=== PATIENT | female | born 1935 | race Caucasian/White ===

== ENCOUNTER → 2022-10-12 13:19 | Outpatient (BNVA) | payer MEDICARE, SELFPAY | PROVIDERS: Visit Provider Podiatrist Foot & Ankle Surgery | DX: I73.9 Peripheral vascular disease, unspecified (principal); M20.41 Other hammer toe(s) (acquired), right foot; M20.42 Other hammer toe(s) (acquired), left foot; L60.3 Nail dystrophy; L84 Corns and callosities | CPT/HCPCS: 11057; 11721; 99204 ==

== ENCOUNTER 2022-11-20 14:45 | Inpatient (IN) | payer MEDICARE, SELFPAY ==
[2022-11-20] VITALS (22 sets, daily range): BP systolic 104–227; BP diastolic 54–121; PULSE 61–86; RESP 6–26; TEMP 36.5–37.7; O2SAT 89–96
--- NOTE | 2022-11-20 15:00 | XR_ITS ---
WS: [id number] Portable AP upright chest, 11/20/2022 Clinical Data: dyspnea/cough Comparison: None. Findings: No nodules, masses or effusions are seen. There is a patchy opacity overlying the lateral a spect of the right diaphragm which could represent atelectasis, pneumonia and/or effusion. The heart is enlarged. The pulmonary vascularity is not increased. No pneumonia or pneumothorax is seen. The ao rtic arch and descending thoracic aorta show mild tortuosity. XR/XR chest 1V portable [id number] Impression: 1. Patchy opacity in the right lower lobe which could represent atelectasis, pn eumonia and/or effusion. 2. Cardiomegaly and atherosclerosis.
--- NOTE | 2022-11-20 15:05 | ECG_ITS ---
[facility] Test Date: 2022-11-20 Pat Name: Nguyen Valencia Department: Room: Gender: Female Basket Filler: : 1935 Requested By: Lamonte Bro Order Number: [id number] Elza MD: Shari Benson M.D. Measurements Intervals [place] Rate: 70 P: -2 MS: 184 QRS: -14 QRSD: 89 T: 62 QT: 420 QTc: 455 Interpretive Statements SINUS RHYTHM WITH SINUS ARRHYTHMIA No previous ECG available for comparison Electronically Signed On 11-20-2022 16:43:15 DUPLICATOR PUNCH OPERATOR by Shari Benson M.D. [id number]
--- NOTE | 2022-11-20 15:14 | W.ED.GENADLT ---
HPI - General Adult General: Chief complaint: General Medical Stated complaint: HYPERTENSION/ DEMENTIA Time Seen by Provider: 11/20/22 14:47 Source: patient Mode of arrival: EMS History of Present Illness: 87-year-old female presents emergency room has a moderate dementia severely hard of hearing blood pressure is markedly elevated presents from a local assisted living. No focal neurologic deficits denies any specific areas of pain or discomfort. She is most part she is unsure why she is here. Relieving factors: none Exacerbating factors: none Associated symptoms: Reports confusion; Deny chest pain, dyspnea, malaise, nausea, rash or vomiting Treatments prior to arrival: none Review of Systems Const: Denies: fever(s), chills, body aches, change in appetite, fatigue or malaise ENMT: Denies: throat pain, ear or mastoid pain, nasal discharge or nasal congestion Card: Denies: chest pain, edema, dyspnea on exertion or orthopnea Resp: Denies: dyspnea, productive cough or non-productive cough GI: Denies: abdominal pain, nausea, vomiting, hematemesis, coffee ground emesis, diarrhea, constipation, bloating, hematochezia or melena : Denies: flank pain, difficulty voiding, dysuria, urinary frequency or urinary urgency Skin/Breast: Denies: rash or pruritus Neuro: Reports: confusion PFSH ED PFSH: Medical History CAD (coronary artery disease) stents x2 Dementia Hypertension Social History (Updated 11/20/22 @ 19:05 by Tim Nash MD) Smoking and tobacco status: never smoked Alcohol intake: never Lives independently: No Housing: Assisted Living Facility Physical Exam Const: COMMON NORMALS: no acute distress GENERAL APPEARANCE: cooperative and comfortable ORIENTATION/CONSCIOUSNESS: Yes awake, Yes oriented to person, Yes oriented to place and Yes oriented to time HENMT: COMMON NORMALS: normocephalic, atraumatic and hearing grossly normal bilaterally HEAD & SCALP: normocephalic and atraumatic Resp: COMMON NORMALS: normal respiratory effort, No retractions, No use of accessory muscles and clear to auscultation bilaterally AUSCULTATION: clear to auscultation bilaterally Cardio: COMMON NORMALS: regular rate, regular rhythm and No murmurs present (Cardio) RATE: regular rate RHYTHM: regular rhythm GI: COMMON NORMALS: Soft to palpation and No hepatosplenomegaly present AUSCULTATION: Yes normoactive bowel sounds PALPATION: Yes Soft to palpation, No Tenderness to palpation present (GI), No Guarding due to palpation present (GI) and Yes No hepatosplenomegaly present Extremity: COMMON NORMALS: normal to inspection, capillary refill normal, no clubbing, cyanosis or edema, no calf tenderness and no pedal edema Neuro: SENSORIUM/ORIENTATION: Yes oriented to person, Yes oriented to place and Yes oriented to time Skin: COMMON NORMALS: no rashes or lesions noted GENERAL SKIN EXAM: no rashes or lesions noted Course Vital Signs: Vital signs: Vital Signs Temperature 97.6 F 11/25/22 12:00 Pulse Rate 77 11/25/22 12:00 Respiratory Rate 17 11/25/22 12:00 Blood Pressure 149/75 11/25/22 12:00 Pulse Oximetry 94 11/25/22 12:00 Oxygen Delivery Me thod 11/25/22 12:00 Oxygen Flow Rate 2 11/24/22 20:00 MDM - General Adult Medical Decision Making Labs imaging and EKG reviewed. Chest x-ray shows pneumonia. Will admit started on IV antibiotics. Control blood pressure discussed with hospitalist orders written Medical Records I reviewed the patient's medical records. Lab Data I reviewed the patient's lab results. 11/20/22 15:39 11/20/22 15:39 Radiology Impressions Chest X-Ray 11/20/22 15:00 Impression: 1. Patchy opacity in the right lower lobe which could represent atelectasis, pneumonia and/or effusion. 2. Cardiomegaly and atherosclerosis. Chest/Abdomen/Pelvis CT 11/20/22 18:43 IMPRESSION: Findings suspicious for inflammatory change at distal esophagus. Otherwise, no acute findings. IMPRESSION: No acute findings. Head CT 11/20/22 19:15 IMPRESSION: No acute intracranial abnormality. Renal Ultrasound 11/21/22 08:43 IMPRESSION: Normal kidneys. No hemodynamically significant stenosis. Venous Duplex 11/23/22 18:47 IMPRESSION: 1. No right upper extremity deep venous thrombus. 2. Right upper arm cephalic vein superficial thrombosis. Laboratory Results WBC 8.9 10^3/uL (4.0-10.0) 11/20/22 15:39 RBC 4.70 10^6/uL (4.1-5.3) 11/20/22 15:39 Hgb 13.9 g/dL (11.5-15.3) 11/20/22 15:39 Hct 42.8 % (37.0-47.0) 11/20/22 15:39 MCV 91.1 fl (81-99) 11/20/22 15:39 MCH 29.6 pg (28.0-34.0) 11/20/22 15:39 MCHC 32.5 g/dL (30.0-36.0) 11/20/22 15:39 RDW 13.4 % (12.1-15.1) 11/20/22 15:39 Plt Count 187 10^3/cmm (130-400) 11/20/22 15:39 MPV 9.2 fL (7.4-10.4) 11/20/22 15:39 Neut % (Auto) 61.4 % 11/20/22 15:39 Lymph % (Auto) 22.9 % 11/20/22 15:39 [place] % (Auto) 11.9 % 11/20/22 15:39 Eos % (Auto) 2.9 % 11/20/22 15:39 Baso % (Auto) 0.6 % 11/20/22 15:39 Neut # (Auto) 5.47 10^3/uL (1.8-7.7) 11/20/22 15:39 Lymph # (Auto) 2.0 10^3/uL (0.8-4.8) 11/20/22 15:39 [place] # (Auto) 1.1 10^3/uL (0.2-0.9) H 11/20/22 15:39 Eos # (Auto) 0.3 10^3/uL (0.0-0.8) 11/20/22 15:39 Baso # (Auto) 0.1 10^3/uL (0.0-0.1) 11/20/22 15:39 Nucleated RBC % (auto) 0 % 11/20/22 15:39 Nucleated RBCs # 0.0 /100WBC 11/20/22 15:39 Sodium 142 mmol/L (136-145) 11/20/22 15:39 Potassium 4.0 mmol/L (3.5-5.1) 11/20/22 15:39 Chloride 102 mmol/L (98-107) 11/20/22 15:39 Carbon Dioxide 27 mmol/L (22-29) 11/20/22 15:39 Anion Gap 17.0 (5-19) 11/20/22 15:39 BUN 19 mg/dL (8-23) 11/20/22 15:39 Creatinine 1.1 mg/dL (0.5-0.9) H 11/20/22 15:39 GFR Calculation Not Reportable 11/20/22 15:39 Glucose 134 mg/dL (65-115) H 11/20/22 15:39 Calculated Osmolality 298 mOsm/kg (285-295) H 11/20/22 15:39 Calcium 9.6 mg/dL (8.5-10.5) 11/20/22 15:39 Troponin T Baseline 16 ng/L (0-10) H 11/20/22 15:39 Urine Color Yellow (Yellow) 11/20/22 16:37 Urine Appearance Clear (CLEAR) 11/20/22 16:37 Urine pH 6 (5-7) 11/20/22 16:37 Ur Specific [place] 1.015 (1.005-1.030) 11/20/22 16:37 Urine Protein Neg (Negative) 11/20/22 16:37 Urine Glucose (UA) Norm (Normal) 11/20/22 16:37 Urine Ketones Negative (Negative) 11/20/22 16:37 Urine Blood Neg (Negative) 11/20/22 16:37 Urine Nitrate Negative (Negative) 11/20/22 16:37 Urine Bilirubin Neg (Negative) 11/20/22 16:37 Urine Urobilinogen Norm mg/dL (Negative) 11/20/22 16:37 Ur Leukocyte Esterase Negative (Negative) 11/20/22 16:37 Coronavirus 229E (PCR) Not detected (NOT DETECT) 11/20/22 07:18 SARS-CoV-2 (PCR) Not detected (NOT DETECT) 11/20/22 07:18 Discharge Plan Discharge Patient Disposition: Admitted As Inpatient Admit Provider: Halytskyy,Tim Clinical Impression: Pneumonia, Acute encephalopathy, Hypertensive crisis Condition: Stable Coding Level of Care Code ED Sub Arc Operator for Francisco Arguello
[2022-11-20] MEDS: metoprolol tartrate 25 mg Tablet PO (15:45)
[2022-11-20] MEDS: amlodipine 10 mg Tablet PO (15:45)
[2022-11-20 15:47] LABS: Basophils # 0.1 10^3/uL (0.0-0.1); Basophils % 0.6 %; Eosinophils # 0.3 10^3/uL (0.0-0.8); Eosinophils % 2.9 %; Hematocrit 42.8 % (37.0-47.0); Hemoglobin 13.9 g/dL (11.5-15.3); Lymphocytes % 22.9 %; Mean Corpuscular HGB Conc 32.5 g/dL (30.0-36.0); Mean Corpuscular Hemoglobin 29.6 pg (28.0-34.0); Mean Corpuscular Volume 91.1 fl (81-99); Mean Platelet Volume 9.2 fL (7.4-10.4); Monocytes # 1.1 10^3/uL (0.2-0.9); Monocytes % 11.9 %; Neutrophils # 5.47 10^3/uL (1.8-7.7); Neutrophils % 61.4 %; Nucleated Red Blood Cells % 0 %; Platelet Count 187 10^3/cmm (130-400); Red Cell Distribution Width 13.4 % (12.1-15.1); White Blood Count 8.9 10^3/uL (4.0-10.0)
[2022-11-20] MEDS: hyDRALAzine 20 mg/mL INJ 1 mL IVP (15:47)
[2022-11-20] MEDS: labetalol 5 mg/mL SDV 20mL 10 MG IVP (15:47)
--- NOTE | 2022-11-20 15:57 | PC.NURSE ---
nurse from [facility] called to check on pt. spoke with nurse and let her know still awaiting lab results, told to call back in an hour or so
[2022-11-20 16:08] LABS: Blood Urea Nitrogen 19 mg/dL (8-23); Calcium 9.6 mg/dL (8.5-10.5); Carbon Dioxide 27 mmol/L (22-29); Chloride 102 mmol/L (98-107); Glucose 134 mg/dL (65-115); Osmolality Calculated 298 mOsm/kg (285-295); Sodium 142 mmol/L (136-145)
[2022-11-20 16:57] LABS: Add Urine Microscopic? NO; Charge for UA Resulting for Rev
[2022-11-20 17:57] LABS: Bilirubin Urine Neg (Negative); Blood Urine Neg (Negative); Glucose Urine UA Norm (Normal); Ketones Urine Negative (Negative); Leukocyte Esterase Urine Negative (Negative); Nitrate Urine Negative (Negative); Protein Urine Neg (Negative); Specific Gravity, Urine 1.015 (1.005-1.030); Urine Appearance Clear (CLEAR); Urine Color Yellow (Yellow); Urobilinogen Urine Norm (Negative); pH Urine 6 (5-7)
[2022-11-20] MEDS: nicardipine 20 MG/200 ML PREMIX 25 MG IV (18:26)
--- NOTE | 2022-11-20 18:43 | CTR_ITS ---
PROCEDURE INFORMATION: Exam: CTA Chest With Contrast Exam date and time: 11/20/2022 7:42 PM Age: 87 years old Clinical indication: Abdominal pain; Other: Back; Chest pressure; Additional info: HTN crisis, back pain TECHNIQUE: Imaging protocol: Computed tomographic angiography of the chest with contrast. 3D rendering (Not supervised by radiologist): MIP and/or 3D reconstructed images were created by the technologist. Radiation optimization: All CT scans at this facility use at least one of these dose optimization techniques: automated exposure control; mA and/or kV adjustment per patient size (includes targeted exams where dose is matched to clinical indication); or iterative reconstruction. Contrast material: OMNI 350; Contrast volume: 100 ml; Contrast route: INTRAVENOUS (IV); Other protocol: This patient has received [address] and 0 known cardiac nuclear medicine studies in the 12 months prior to the current study. COMPARISON: CR XR chest 1V portable [id number] 11/20/2022 3:04 PM RADIATION DOSE METRICS: Total DLP (mGy-cm): 271.2 FINDINGS: Pulmonary arteries: Normal. No pulmonary emboli. Aorta: No aortic aneurysm. No aortic dissection. Lungs: Mild atelectasis/scarring bilaterally Pleural spaces: No pneumothorax. No pleural effusion. Heart: Mitral annular calcifications. Mild cardiomegaly. Coronary arteries: Coronary calcifications are noted. Mediastinal space: Distal esophageal thickening suspicious for inflammatory change. Lymph nodes: No enlarged lymph nodes. Diaphragm: Small hiatal hernia. Bones/joints: No acute fracture. Soft tissues: Unremarkable. PROCEDURE INFORMATION: Exam: CT Abdomen And Pelvis With Contrast Exam date and time: 11/20/2022 7:42 PM Age: 87 years old Clinical indication: Abdominal pain; Other: Back; Chest pressure; Additional info: HTN crisis, back pain TECHNIQUE: Imaging protocol: Computed tomography of the abdomen and pelvis with contrast. Radiation optimization: All CT scans at this facility use at least one of these dose optimization techniques: automated exposure control; mA and/or kV adjustment per patient size (includes targeted exams where dose is matched to clinical indication); or iterative reconstruction. Contrast material: OMNI 350; Contrast volume: 100 ml; Contrast route: INTRAVENOUS (IV); Other protocol: This patient has received [address] and 0 known cardiac nuclear medicine studies in the 12 months prior to the current study. COMPARISON: CR XR chest 1V portable [id number] 11/20/2022 3:04 PM RADIATION DOSE METRICS: Total DLP (mGy-cm): 542.9 FINDINGS: Liver: Normal. No mass. Gallbladder and bile ducts: Cholecystectomy. Pancreas: Normal. No ductal dilation. Spleen: Normal. No splenomegaly. Adrenal glands: Normal. No mass. Kidneys and ureters: Normal. No hydronephrosis. Stomach and bowel: Small duodenal diverticulum. Colonic diverticula noted. No evident pericolic inflammatory change. No findings of abnormal bowel distention. Appendix: No evidence of appendicitis. Intraperitoneal space: Unremarkable. No free air. No significant fluid collection. Vasculature: Vascular calcifications are noted. No abdominal aortic aneurysm. Lymph nodes: Unremarkable. No enlarged lymph nodes. Urinary bladder: Unremarkable as visualized. Reproductive: Hysterectomy. Bones/joints: No acute fracture. Soft tissues: Unremarkable. CT/CT angio chest w abd pel w con IMPRESSION: Findings suspicious for inflammatory change at distal esophagus. Otherwise, no acute findings. IMPRESSION: No acute findings.
--- NOTE | 2022-11-20 18:51 | PM.HP ---
Providers/Chief Complaint Admitting Physician: Tim Nash Primary Care Provider: Jorden Melgoza DO Chief Complaint: HYPERTENSION/ DEMENTIA History of Present Illness 87-year-old lady assisted living resident with history of dementia, hypertension, CAD stenting x2 several decades ago, constipation, was found to have very elevated blood pressure at assisted living on routine check. She has been having a mild frontal headache/pressure in her sinuses today. Other than that her daughter reports she has been complaining of some constipation, but without other new issues. In ER she is having back pain. She herself is awake, alert, very hard of hearing, forgot her hearing aid. In good spirits. States she is hungry. Unable to provide other history. Does not know where she is, states the is 1999 something. Her daughter states several months ago her quetiapine dose was increased, but other than that there has not been any recent changes medications. She has not been on any antihypertensives as far as her daughter is aware. She states that sometimes blood pressure will be measured with her standing up with her arm up due to blood pressure slightly high. In ER she was given p.o. dose of metoprolol 25 mg, amlodipine 10 mg, as well as IV 10 mg labetalol push, 20 mg hydralazine push, with only transient blood pressure improvement down to 198/85, subsequent blood pressure again up to 220/110. EKG with sinus rhythm. Unremarkable CBC. BUN 19, creatinine 1.1, unknown baseline. UA unremarkable. Chest x-ray with patchy opacity in the right lower lobe which could represent reflux, pneumonia and/or effusion. Cardiomegaly and atherosclerosis. She denies any vision changes, denies chest pain, denies any numbness or weakness anywhere. Her daughter states she has prior stated wishes in case of cardiopulmonary arrest she is DNR. Review of Systems General: Reports: Other (ROS obtained with help of her daughter) Const: Denies: fever(s), chills, body aches or malaise Eyes: Denies: change in vision, eye discomfort or eye redness ENMT: Denies: throat pain, oral sores or ear or mastoid pain Card: Denies: chest pain, edema, pre-syncope or dyspnea on exertion Resp: Denies: dyspnea, productive cough, change in phlegm color or hemoptysis GI: Reports: abdominal pain; Denies: nausea, vomiting, diarrhea, constipation, hematochezia or melena : Denies: flank pain, urinary frequency or hematuria Musc: Reports: back pain; Denies: joint swelling or joint redness Skin/Breast: Denies: rash or new lesions Neuro: Reports: headache(s); Denies: numbness in extremities, weakness in extremities, dizziness, confusion or seizure-like activity Endo: Denies: polyuria or polydipsia Gary/Lymph: Denies: easy bleeding or tender lymph nodes All/Imm: Denies: urticaria or tongue swelling Medications/Allergies Home Medications Medication Instructions Recorded Confirmed Last Taken Type aspirin 81 mg tablet,delayed 81 mg PO QPM 10/12/22 11/20/22 11/19/22 History release (Adult Aspirin Regimen) quetiapine 50 mg tablet (Seroquel) 50 mg PO QPM 10/12/22 11/20/22 11/19/22 History rosuvastatin 10 mg tablet (Crestor) 10 mg PO BEDTIME 10/12/22 11/20/22 11/19/22 History vit C 500 mg-D3 15 mcg-folic 1,000 1 cap PO DAILY 10/12/22 11/20/22 11/20/22 History mcg-zinc 16 ps-pihvlq-itza capsule vitamin B complex 1 cap PO DAILY 10/12/22 11/20/22 11/20/22 History Lactobacillus rhamnosus GG 10 1 cap PO DAILY PRN unknown 11/20/22 11/20/22 Unknown History billion cell capsule (Culturelle) acetaminophen 650 mg 650 mg PO Q8H PRN Pain 11/20/22 11/20/22 Unknown History tablet,extended release (Tylenol 8 Hour) bisacodyl 10 mg rectal suppository 10 mg NM DAILY PRN Constipation 11/20/22 11/20/22 Unknown History cetirizine 10 mg capsule (Zyrtec) 10 mg PO QPM 11/20/22 11/20/22 11/19/22 History cholecalciferol (vitamin D3) 25 25 mcg PO DAILY 11/20/22 11/20/22 11/20/22 History mcg (1,000 unit) capsule (Vitamin D3) fluticasone propionate 50 1 spray intranasal BID 11/20/22 11/20/22 11/20/22 History mcg/actuation nasal spray,suspension guaifenesin 1,200 mg tablet, 1,200 mg PO Q12H PRN Congestion 11/20/22 11/20/22 Unknown History extended release 12 hr (Mucinex) magnesium hydroxide 400 mg/5 mL 400 mg PO DAILY PRN Constipation 11/20/22 11/20/22 Unknown History oral suspension (Milk of Magnesia) melatonin 5 mg tablet 5 mg PO BEDTIME 11/20/22 11/20/22 11/19/22 History medioovu-rxy-vvnkt ac 400 1 tab PO DAILY 11/20/22 11/20/22 11/20/22 History mcg-calcium carb 500 mg-vit K1 20 mcg tablet (Women's 50 Plus Multivitamin) quetiapine 25 mg tablet (Seroquel) 25 mg PO QPM 11/20/22 11/20/22 11/19/22 History sertraline 50 mg tablet (Zoloft) 50 mg PO QPM 11/20/22 11/20/22 11/19/22 History sodium phosphates 19 gram-7 118 ml NM DAILY PRN Constipation 11/20/22 11/20/22 Unknown History gram/118 mL enema (Fleet Enema) Allergies Allergy/AdvReac Type Severity Reaction Status Date / Time Sulfa (Sulfonamide Allergy ADR-Gastrointestinal Verified 11/20/22 15:16 Antibiotics) Upset PFSH Acute PFSH: Medical History CAD (coronary artery disease) stents x2 Dementia Hypertension Social History (Updated 11/20/22 @ 19:05 by Tim Nash MD) Smoking and tobacco status: never smoked Alcohol intake: never Lives independently: No Housing: Assisted Living Facility Vitals/I&O/Wt Last Vital Signs Temp 99.8 F H 11/20/22 14:46 Pulse 81 11/20/22 18:49 Resp 16 11/20/22 17:28 BP 196/95 11/20/22 18:49 Pulse Ox 96 11/20/22 18:49 O2 Del Method 11/20/22 17:28 Weight last 48 hrs Weight 77.111 kg Physical Exam Narrative: Daughter at bedside. She is very hard of hearing, hears better in the left ear when spoken to loudly. Const: COMMON NORMALS: patient oriented x3 and alert GENERAL APPEARANCE: cooperative ORIENTATION/CONSCIOUSNESS: Yes awake HENMT: COMMON NORMALS: oropharynx normal Neck/C-Spine: COMMON NORMALS: no JVD Resp: COMMON NORMALS: normal respiratory effort and clear to auscultation bilaterally AUSCULTATION: clear to auscultation bilaterally Cardio: COMMON NORMALS: no JVD, regular rhythm, S1 normal heart sound present, S2 normal heart sound present and No murmurs present (Cardio) RHYTHM: regular rhythm HEART SOUNDS: S1 normal heart sound present and S2 normal heart sound present GI: COMMON NORMALS: Normal to inspection, nondistended, normoactive bowel sounds present and Soft to palpation PALPATION: Yes Soft to palpation and Yes Tenderness to palpation present (GI) Details: LLQ Extremity: COMMON NORMALS: no joint enlargement and no pedal edema Neuro: COMMON NORMALS: patient oriented x3 and moves all extremities SENSORIUM/ORIENTATION: Yes alert Skin: COMMON NORMALS: no rashes or lesions noted GENERAL SKIN EXAM: no rashes or lesions noted Data 11/20/22 15:39 11/20/22 15:39 A&P Assessment and plan (1) Hypertensive crisis: Blood pressure back up to 220/110 despite treatment. Assessments performed so far reviewed, discussed with ER physician. Starting on nicardipine drip. Requested admit to ICU. With back pain, abdominal pain discussed with her daughter additional assessment with CTA to assess for aortic dissection. Discussed risks. Daughter is agreeable. with KENDRICK will obtain CT head as well. Nicardipine drip, target blood pressure 175/88 tonight however several hours, then gradual decrease from there. Unclear if having endorgan damage. Additional assessment with CTA. Chest x-ray with patchy opacity right lower lobe. Daughter states she has not been having any cough. Has not been complaining of any shortness of breath. She denies chest pain. Possibility of early pulmonary edema. Does have low-grade temp 99.8. Some lower possibility of pneumonia. Will reassess chest x-ray in the morning. Monitor oxygenation. Additionally headache, possibly secondary to persistent blood pressure elevation. Creatinine 1.1, unknown baseline. Possible SUE. On chest x-ray noted cardiomegaly and atherosclerosis. Has history of CAD. Does not endorse symptoms of decompensated CHF. Consider further assessment with TTE. Monitor on telemetry due to high risk of complications including (2) Back pain: Daughter states has no history of complaints of back pain previously. Certainly may be osteoarthritis, however, with hypertensive crisis additionally assessed with CT angiogram as above. (3) Abdominal pain: Daughter reports history of constipation, left lower quadrant pain and tenderness on palpation abdomen is soft. Otherwise no history suggestive of ischemic bowel disease. Additional assessment with CT as above. (4) Headache: CT head requested. May be hypertensive encephalopathy with persistent very high blood pressure even despite treatment. Nicardipine drip as above. Daughter states she has been having some pressure-like sensation over frontal sinuses. Possibly sinusitis. Follow-up CT head. 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 UA unremarkable. Right lower lobe patchy opacity, but otherwise not endorse terms of pneumonia. We will check COVID PCR panel. Additionally left lower quadrant abdominal pain, constipation, follow-up abdominal CT findings. (6) Abnormal renal function: Unknown baseline. Possible SUE, creatinine 1.1, BUN 19. Possibly secondary to hypertensive crisis. I do not see any obvious offending medications at home. Does take rosuvastatin, check CK. (7) Constipation: MiraLAX, continue her usual bowel regimen as well. Plan CAD with stent x2 Dementia Attestations Medical Necessity Statement*: Admission of over 2 midnights anticipated for assessment management of hypertensive crisis with blood pressure not responsive to oral and IV push medications, additional assessment of headache, back pain, abdominal pain, SUE, at risk of serious/life-threatening complication, requiring intensive care level treatment and monitoring. Coding Level of Care Code Critical Care >/= 30 minutes Critical care time (in minutes): 50 The high probability of a clinically significant, sudden or life threatening deterioration, as referenced in this documentation, required my full and direct attention, intervention and personal management. The critical care time shown is in addition to time spent performing any reported separately billable procedures and includes the following: [x] Data and vital sign review and interpretation [x] Patient assessment, examination and intervention [x] Medication orders and management [x] Patient/Family updates as able [x] Care Coordination and Documentation. Diagnoses Hypertensive crisis I16.9 Back pain M54.9 Abdominal pain R10.9 Headache R51.9 Low grade fever R50.9 Abnormal renal function N28.9 Constipation K59.00
[2022-11-20] MEDS: iohexol 350 mg/mL 500 mL Btl (per mL) IV (18:57)
--- NOTE | 2022-11-20 19:15 | CTR_ITS ---
PROCEDURE INFORMATION: Exam: CT Head Without Contrast Exam date and time: 11/20/2022 7:28 PM Age: 87 years old Clinical indication: Pain; Headache not specified; Additional info: Hypertensive crisis, headache TECHNIQUE: Imaging protocol: Computed tomography of the head without contrast. Radiation optimization: All CT scans at this facility use at least one of these dose optimization techniques: automated exposure control; mA and/or kV adjustment per patient size (includes targeted exams where dose is matched to clinical indication); or iterative reconstruction. Other protocol: This patient has received [address] and 0 known cardiac nuclear medicine studies in the 12 months prior to the current study. COMPARISON: No relevant prior studies available. RADIATION DOSE METRICS: Total DLP (mGy-cm): 1178.18 FINDINGS: Brain: No hemorrhage. No edema. Advanced diffuse cerebral atrophy, particularly prominent within the temporal lobes. Moderate sequela of chronic small vessel ischemic disease. Old lacunar infarct noted in the left basal ganglia. No mass effect. Cerebral ventricles: No ventriculomegaly. Paranasal sinuses: Mucosal retention cyst noted in the right maxillary sinus. The rest of the paranasal sinuses are well pneumatized. Mastoid air cells: Bilateral mastoidectomies. Bones/joints: Unremarkable. No acute fracture. Soft tissues: Unremarkable. CT/CT head wo con* [id number] IMPRESSION: No acute intracranial abnormality.
[2022-11-20 19:38] LABS: Troponin(5th) Baseline 16 ng/L (0-10)
[2022-11-20 20:04] LABS: Creatine Phosphokinase 110 U/L (26-192)
--- NOTE | 2022-11-20 20:44 | ECG_ITS ---
[facility] Test Date: 2022-11-20 Pat Name: Nguyen Valencia Department: Room: [facility] Gender: Female Maintenance And Repair Worker: : 1935 Requested By: Lamonte Bro Order Number: [id number] Elza MD: Shari Benson M.D. Measurements Intervals [place] Rate: 67 P: 191 MT: 190 QRS: 224 QRSD: 97 T: 111 QT: 407 QTc: 431 Interpretive Statements SINUS RHYTHM WITH OCCASIONAL SUPRAVENTRICULAR PREMATURE COMPLEXES ARM LEADS REVERSED [INVERTED P AND QRS IN I] Compared to ECG 11/20/2022 15:05:51 Sinus arrhythmia no longer present Electronically Signed On 11-20-2022 23:18:44 UNDERGROUND MINE SUPERINTENDENT by Shari Benson M.D. [email or web address].[id number]
[2022-11-21] VITALS (50 sets, daily range): BP systolic 84–196; BP diastolic 41–170; PULSE 52–89; RESP 12–20; TEMP 36.6–36.7; O2SAT 89–98
--- NOTE | 2022-11-21 00:07 | ECG_ITS ---
[facility] Test Date: 2022-11-21 Pat Name: Nguyen Valencia Department: Room: [facility] Gender: Female Retail Sales Merchandiser: : 1935 Requested By: Lamonte Bro Order Number: [id number] Elza MD: Baldo Diaz M.D. Measurements Intervals [place] Rate: 71 P: 18 [place]: 203 QRS: -11 QRSD: 92 T: 75 QT: 409 QTc: 444 Interpretive Statements SINUS RHYTHM WITH OCCASIONAL SUPRAVENTRICULAR PREMATURE COMPLEXES NONSPECIFIC T-WAVE ABNORMALITY Compared to ECG 11/20/2022 20:44:53 T-wave abnormality now present Electronically Signed On 11-21-2022 19:35:51 OFFICE AUTOMATION TECHNICIAN by Baldo Diaz M.D. [email or web address] health woman's hospitalChinaNetCenterclevel[facility] clinic [facility].enVista/store/[id number]
[2022-11-21 01:21] LABS: Troponin 5 6HR 20.37 ng/L (0-10)
[2022-11-21 01:26] LABS: Troponin 5 6HR Delta 4.37 ng/L (0-12)
[2022-11-21] MEDS: ziprasidone 20 mg/mL SDV 10 MG IM (01:32)
--- NOTE | 2022-11-21 02:05 | PC.NURSE ---
Pt confused at baseline. Pt continued to become more confused and less redirectable. Pt bed alarm turned on upon admission, but pt continued to try to get out of bed. Pt continues to remove lines and monitoring devices. Dr. Alfonso consulted and 10 mh danielle ordered and given (see MAR). Pt continues to kick legs, remove BP cuff, and attempt to get out of bed.
[2022-11-21] MEDS: nicardipine 20 MG/200 ML PREMIX 75 MG IV (04:10)
[2022-11-21] MEDS: LORazepam 2 mg/mL INJ 1 mL IVP (04:21)
[2022-11-21 05:34] LABS: Basophils % 0.4 %; Eosinophils % 0.2 %; Hematocrit 45.7 % (37.0-47.0); Hemoglobin 14.5 g/dL (11.5-15.3); Lymphocytes # 1.7 10^3/uL (0.8-4.8); Lymphocytes % 14.9 %; Mean Corpuscular HGB Conc 31.7 g/dL (30.0-36.0); Mean Corpuscular Hemoglobin 29.5 pg (28.0-34.0); Mean Corpuscular Volume 92.9 fl (81-99); Mean Platelet Volume 10.3 fL (7.4-10.4); Monocytes % 8.9 %; Neutrophils # 8.52 10^3/uL (1.8-7.7); Neutrophils % 75.2 %; Nucleated Red Blood Cells % 0 %; Platelet Count 166 10^3/cmm (130-400); Red Blood Count 4.92 10^6/uL (4.1-5.3); Red Cell Distribution Width 13.7 % (12.1-15.1); White Blood Count 11.3 10^3/uL (4.0-10.0)
[2022-11-21 05:57] LABS: Albumin Level 4.1 g/dL (3.5-5.2); Alkaline Phosphatase 105 U/L (35-105); Blood Urea Nitrogen 17 mg/dL (8-23); Calcium 9.6 mg/dL (8.5-10.5); Carbon Dioxide 22 mmol/L (22-29); Chloride 101 mmol/L (98-107); Glucose 132 mg/dL (65-115); Osmolality Calculated 285 mOsm/kg (285-295); Sodium 136 mmol/L (136-145); Total Protein 7.1 g/dL (6.6-8.7)
[2022-11-21 06:00] LABS: Alanine Aminotransferase 16 U/L (0-33); Aspartate Amino Transferase 31 U/L (0-32)
[2022-11-21] MEDS: nicardipine 20 MG/200 ML PREMIX 25 MG IV (08:13)
--- NOTE | 2022-11-21 08:43 | USR_ITS ---
PROCEDURE INFORMATION: Exam: US Duplex Artery and Vein of the Abdominal and/or Reproductive Organs, Complete Kidneys Exam date and time: 11/21/2022 6:13 PM Age: 87 years old Clinical indication: Condition or disease; Other: Hypertension; Additional info: Assess for stenosis TECHNIQUE: Imaging protocol: Real-time duplex ultrasound scan of the arterial and venous flow with color Doppler flow and spectral waveform analysis with image documentation. Complete duplex exam focused on the kidneys. Duplex exam was performed to evaluate for vascular conditions. COMPARISON: CT angio chest w abd pel w con 11/20/2022 7:42 PM FINDINGS: Right kidney: Right kidney length somewhat difficult to measure due to orientation of kidney. Kidney likely symmetric to contralateral side. No hydronephrosis. Right renal artery: Patent. Waveforms are within normal limits. Normal velocities. Right interlobar/arcuate arteries: 0.67-0.74 Right renal vein: Patent Left kidney: Left kidney measures 9.7 cm in length. No hydronephrosis. Left renal artery: Patent. Waveforms are within normal limits. Normal velocities. Left interlobar/arcuate arteries: 0.77-0.80 Left renal vein: Patent. Waveforms are within normal limits. Normal velocities. US/CV renal doppler [id number] IMPRESSION: Normal kidneys. No hemodynamically significant stenosis.
--- NOTE | 2022-11-21 08:47 | USCV_ITS ---
Nguyen Valencia Age: 87 Gender: F : 1935 Exam Date: 11/21/2022 16:11 Ordering Phys: Tim Nash MD Technologist: GUY [place] [facility] [place]ication: htn crisis, cardiomegally BP: / HR: Rhythm: Sinus Technical Quality: Adequate MEASUREMENTS (Male / Female) Normal Values FINDINGS Left Ventricle Normal left ventricular size and systolic function, EF65%.no regional wall motion abnormalities. Grade I/IV diastolic dysfunction (abnormal relaxation filling pattern), normal to mildly elevated filling pressures. Moderate left ventricular hypertrophy. Right Ventricle The right ventricle is normal in size and function. Right Atrium The right atrium is normal in size. Left Atrium Mildly increased left atrial size. Mitral Valve Thickened mitral valve. Mild mitral valve regurgitation. Moderate mitral annular calcification. Aortic Valve Thickened aortic valve. Tricuspid Valve No gross abnormalities Pulmonic Valve Pulmonic valve not well visualized. Pericardium Normal pericardium without effusion. Aorta Normal ascending aorta dimension. IVC Inferior vena cava not visualized. CONCLUSIONS Normal left ventricular size and systolic function, EF68%. No regional wall motion abnormalities. Grade I/IV diastolic dysfunction (abnormal relaxation filling pattern), normal to mildly elevated filling pressures. Moderate left ventricular hypertrophy. Mildly increased left atrial size. Thickened mitral valve. Mild mitral valve regurgitation. Moderate mitral annular calcification. Thickened aortic valve. There is no pericardial effusion. There are no intracardiac masses. No similar previous studies are available for comparison Dr Baldo Diaz MD [facility] (Electronically Signed) Final Date: 21 November 2022 17:54 S
[2022-11-21] MEDS: fluticasone nasal spray 16gm Btl 1 SPRAY INTRANASAL ×2 (09:23→18:44)
[2022-11-21] MEDS: hyDRALAzine 25 mg Tablet PO ×3 (09:23→21:13)
[2022-11-21] MEDS: atenolol 50 mg Tablet 25 MG PO (09:23)
[2022-11-21 09:35] LABS: Adenovirus Not Detected (NOT DETECT); Chlamydia Pneumoniae Not Detected (NOT DETECT); Coronavirus 229E,HKU1,NL63,OC4 Not Detected (NOT DETECT); Human Metapneumovirus Not Detected (NOT DETECT); Human Rhinovirus/Enterovirus Not Detected (NOT DETECT); Influenza A Not Detected (NOT DETECT); Influenza A H1 Not Detected (NOT DETECT); Influenza A H1-2009 Not Detected (NOT DETECT); Influenza A H3 Not Detected (NOT DETECT); Influenza B Not Detected (NOT DETECT); Mycoplasma Pneumoniae Not Detected (NOT DETECT); Parainfluenza Virus Type 1 Not Detected (NOT DETECT); Parainfluenza Virus Type 2 Not Detected (NOT DETECT); Parainfluenza Virus Type 3 Not Detected (NOT DETECT); Parainfluenza Virus Type 4 Not Detected (NOT DETECT); Respiratory Syncytial Virus A Not Detected (NOT DETECT); Respiratory Syncytial Virus B Not Detected (NOT DETECT); SARS-COV-2 Not Detected (NOT DETECT)
[2022-11-21] MEDS: heparin 5,000 unit/mL INJ 1 mL 5000 UNIT SUBCUT ×2 (11:19→21:12)
[2022-11-21] MEDS: azithromycin 500 MG in sodium chloride 0.9% 250 ML 250 MG IV (13:38)
[2022-11-21] MEDS: cefTRIAXone 1,000 MG in sodium chloride 0.9% (plus) 50 ML 100 MG IV (13:39)
[2022-11-21] MEDS: cetirizine 10 mg Tablet PO (18:43)
[2022-11-21] MEDS: quetiapine 25 mg Tablet 50 MG PO (18:43)
[2022-11-21] MEDS: aspirin 81 mg EC Tablet PO (18:43)
[2022-11-21] MEDS: sertraline 50 mg Tablet PO (18:43)
[2022-11-21] MEDS: quetiapine 25 mg Tablet PO (18:43)
--- NOTE | 2022-11-21 19:46 | P.PN_ITS ---
Subjective Subjective: This morning somewhat more confused. Noted favoring the right side, preferring to lay on the right side. Per report noted to be doing that on the day of admission at assisted living as well. She is hard of hearing, even though has her hearing aid in. Responds to questions intermittently. When she does respond denies any pain or discomfort. Not oriented. She had a difficult night. Became very restless and confused. Received a dose of Geodon, later on a dose of Ativan. One-to-one sitter was set up. Vitals/I&O/Wt Last Vital Signs Temp 97.8 F 11/21/22 14:00 Pulse 79 11/21/22 17:30 Resp 12 11/21/22 17:30 BP 147/72 11/21/22 17:30 Pulse Ox 95 11/21/22 17:00 O2 Del Method 11/21/22 17:30 O2 Flow Rate 2 11/21/22 17:30 11/21/22 11/21/22 11/21/22 06:59 14:59 22:59 Intake Total 267.916 / 357.083 337.083 / 337.083 50 / 387.083 Output Total 550 / 550 600 / 600 Balance -282.084 / -192.917 337.083 / 337.083 -550 / -212.917 Weight last 48 hrs Weight 61.689 kg Weight 77.111 kg Physical Exam Narrative: Daughter at bedside. She is very hard of hearing, hears better in the left ear when spoken to loudly. Const: COMMON NORMALS: patient oriented x3 and alert GENERAL APPEARANCE: cooperative ORIENTATION/CONSCIOUSNESS: Yes awake OTHER: Appears more confused this morning. Does not follow directions well. HENMT: COMMON NORMALS: oropharynx normal Neck/C-Spine: COMMON NORMALS: no JVD Resp: COMMON NORMALS: normal respiratory effort and clear to auscultation bilaterally AUSCULTATION: clear to auscultation bilaterally Cardio: COMMON NORMALS: no JVD, regular rhythm, S1 normal heart sound present, S2 normal heart sound present and No murmurs present (Cardio) RHYTHM: regular rhythm HEART SOUNDS: S1 normal heart sound present and S2 normal heart sound present GI: COMMON NORMALS: Normal to inspection, nondistended, normoactive bowel sounds present, Soft to palpation and non-tender PALPATION: Yes Soft to palpation and Yes Tenderness to palpation present (GI) Extremity: COMMON NORMALS: no joint enlargement and no pedal edema Neuro: COMMON NORMALS: patient oriented x3 and moves all extremities SENSORIUM/ORIENTATION: Yes alert OTHER: Appears possibly favoring the right side, laying on the right, although response to me on the left. No trouble walking left. No obvious facial droop. Underlying dementia and now encephalopathy prevents detailed examination. Skin: COMMON NORMALS: no rashes or lesions noted GENERAL SKIN EXAM: no rashes or lesions noted Urinary Catheter Management: Del Cid: Cath Placed During This Visit: yes Reason for Continuing Indwelling Catheter: Accurate Measurement of Urinary Output in Critically Ill Patients Urinary Catheter Date of Insertion: 11/20/22 Urinary Catheter Time of Insertion: 23:29 Data 11/21/22 04:45 11/21/22 04:45 A&P Assessment and plan (1) Acute encephalopathy: Rated riskMore confused this morning. Had a very difficult night. Became restless. [facility] One-to-one sitter had to be set up. Also has been noticed to be favoring the right side, as per her daughter this was found to be the case on the day of admission at assisted living as well. Possibly hypertensive encephalopathy, possibly infection related secondary to pneumonia. Oxygen saturation noted on the soft side, saturating about 90-91% while awake at rest. Not really coughing. Leukocytosis noted today 11.3. Blood pressure overall is much better than yesterday. As mental status appeared to worsen slightly with blood pressure decreasing to 140s/70s, as well as with consideration of possible CVA as discussed with her daughter, we held back on nicardipine drip with starting of oral medications. Targeting blood pressure 175/77 as per prior target. Later in the day again became more hypotensive, required to restart a drip. Started on treatment for possible pneumonia with ceftriaxone, azithromycin. UA not suggestive of UTI. With underlying dementia at elevated risk of delirium. Continue to monitor mental. Continue one-to-one sitter. At risk of further confusion. We will try to transfer out of ICU. (2) Hypertensive crisis: Transiently stop nicardipine drip today with liberalized blood pressure target due to worsening of mental status, favoring the right side, possibility of small CVA. Discussed with daughter. Had to go back transiently on nicardipine drip later in the day. Started atenolol, hydralazine. Continue to monitor blood pressures. Reviewed CTA, no dissection. Head CT without bleed. Reviewed creatinine, today with improvement. Troponin series was only mild elevation. Possible pulmonary edema and right thalamic with noted worsening oxygenation versus possible pneumonia. Monitor on telemetry due to high risk of complications (3) Back pain: Today resolved. Daughter states has no history of complaints of back pain previously. Certainly may be osteoarthritis, however, with hypertensive crisis additionally assessed with CT angiogram as above. (4) Abdominal pain: Resolved. CT abdomen pelvis reviewed, findings suspicious for inflammatory change of distal esophagus. Otherwise no acute findings in the abdomen. Had PPI. Daughter reports history of constipation, left lower quadrant pain and tenderness on palpation abdomen is soft. Otherwise no history suggestive of ischemic bowel disease. Additional assessment with CT as above. (5) Headache: Resolved. Suspect related to hypertensive. CT head reviewed, without acute abnormality. (6) Low grade fever: Today with worsening oxygenation, worsening confusion. Leukocytosis 11.3. Possible pneumonia. Started ceftriaxone and azithromycin. Monitor oxygenation. Moderate risk group for mortality. COVID PCR panel reviewed, negative. Additionally left lower quadrant abdominal pain, constipation, follow-up abdominal CT findings. (7) Abnormal renal function: Improved. CK reviewed, not elevated. (8) Constipation: MiraLAX, continue her usual bowel regimen as well. Plan CAD with stent x2 Dementia Attestations Medical Necessity Statement*: Continue admission for management of acute encephalopathy, after hypertensive crisis, continue optimization of blood pressure, treatment of pneumonia. Coding Level of Care Code Critical Care >/= 30 minutes Critical care time (in minutes): 40 The high probability of a clinically significant, sudden or life threatening deterioration, as referenced in this documentation, required my full and direct attention, intervention and personal management. The critical care time shown is in addition to time spent performing any reported separately billable procedures and includes the following: [x] Data and vital sign review and interpretation [x ] Patient assessment, examination and intervention [x] Medication orders and management [x] Patient/Family updates as able [x] Care Coordination and Documentation. Diagnoses Acute encephalopathy G93.40 Hypertensive crisis I16.9 Back pain M54.9 Abdominal pain R10.9 Headache R51.9 Low grade fever R50.9 Abnormal renal function N28.9 Constipation K59.00
[2022-11-21] MEDS: atorvastatin 40 mg Tablet PO (21:13)
[2022-11-22] VITALS (20 sets, daily range): BP systolic 101–172; BP diastolic 47–89; PULSE 47–68; RESP 14–24; TEMP 36.4–36.7; O2SAT 90–99
[2022-11-22] MEDS: acetaminophen 325 mg Tablet 650 MG PO (05:30)
[2022-11-22 05:41] LABS: Basophils # 0.1 10^3/uL (0.0-0.1); Basophils % 0.6 %; Eosinophils # 0.1 10^3/uL (0.0-0.8); Eosinophils % 1.3 %; Hematocrit 44.8 % (37.0-47.0); Hemoglobin 13.6 g/dL (11.5-15.3); Lymphocytes # 1.9 10^3/uL (0.8-4.8); Lymphocytes % 22.7 %; Mean Corpuscular HGB Conc 30.4 g/dL (30.0-36.0); Mean Corpuscular Hemoglobin 29.8 pg (28.0-34.0); Mean Corpuscular Volume 98.2 fl (81-99); Mean Platelet Volume 9.4 fL (7.4-10.4); Monocytes % 11.9 %; Neutrophils # 5.26 10^3/uL (1.8-7.7); Neutrophils % 63.1 %; Nucleated Red Blood Cells % 0 %; Platelet Count 163 10^3/cmm (130-400); Red Blood Count 4.56 10^6/uL (4.1-5.3); Red Cell Distribution Width 14.3 % (12.1-15.1); White Blood Count 8.3 10^3/uL (4.0-10.0)
[2022-11-22 06:09] LABS: Alanine Aminotransferase 14 U/L (0-33); Albumin Level 3.5 g/dL (3.5-5.2); Alkaline Phosphatase 98 U/L (35-105); Aspartate Amino Transferase 23 U/L (0-32); Blood Urea Nitrogen 22 mg/dL (8-23); Carbon Dioxide 22 mmol/L (22-29); Chloride 104 mmol/L (98-107); Globulin 2.9 g/dL (1.3-4.6); Glucose 110 mg/dL (65-115); Osmolality Calculated 292 mOsm/kg (285-295); Sodium 139 mmol/L (136-145)
[2022-11-22 06:10] LABS: Anion Gap 17.1 (5-19); Potassium 4.1 mmol/L (3.5-5.1)
[2022-11-22 06:11] LABS: Total Protein 6.4 g/dL (6.6-8.7)
[2022-11-22] MEDS: atenolol 50 mg Tablet 25 MG PO (07:55)
[2022-11-22] MEDS: pantoprazole 40 mg SDV IVP (07:55)
[2022-11-22] MEDS: fluticasone nasal spray 16gm Btl 1 SPRAY INTRANASAL (07:55)
[2022-11-22] MEDS: hyDRALAzine 25 mg Tablet PO (07:55)
[2022-11-22] MEDS: heparin 5,000 unit/mL INJ 1 mL 5000 UNIT SUBCUT ×2 (10:46→23:05)
[2022-11-22] MEDS: azithromycin 500 MG in sodium chloride 0.9% 250 ML 200 MG IV (13:02)
[2022-11-22] MEDS: cefTRIAXone 1,000 MG in sodium chloride 0.9% (plus) 50 ML 100 MG IV (13:04)
--- NOTE | 2022-11-22 13:43 | P.PN_ITS ---
Subjective Subjective: This morning she is more alert, more responsive, denies pain or discomfort. Noted to still prefer laying on the right side. Vitals/I&O/Wt Last Vital Signs Temp 97.6 F 11/22/22 07:00 Pulse 57 L 11/22/22 08:00 Resp 15 11/22/22 08:00 BP 119/60 11/22/22 08:00 Pulse Ox 99 11/22/22 08:00 O2 Del Method 11/21/22 23:15 O2 Flow Rate 2 11/21/22 23:15 11/21/22 11/22/22 11/22/22 22:59 06:59 14:59 Intake Total 212.5 / 549.583 110 / 659.583 60 / 60 Output Total 725 / 725 125 / 850 Balance -512.5 / -175.417 -15 / -190.417 60 / 60 Weight last 48 hrs Weight 61.643 kg Weight 61.689 kg Weight 77.111 kg Physical Exam Narrative: Daughter at bedside. She is very hard of hearing, hears better in the left ear when spoken to loudly. Const: COMMON NORMALS: patient oriented x3 and alert GENERAL APPEARANCE: cooperative ORIENTATION/CONSCIOUSNESS: Yes awake OTHER: Appears more confused this morning. Does not follow directions well. HENMT: COMMON NORMALS: oropharynx normal Neck/C-Spine: COMMON NORMALS: no JVD Resp: COMMON NORMALS: normal respiratory effort and clear to auscultation fabrizio aterally AUSCULTATION: clear to auscultation bilaterally Cardio: COMMON NORMALS: no JVD, regular rhythm, S1 normal heart sound present, S2 normal heart sound present and No murmurs present (Cardio) RHYTHM: regular rhythm HEART SOUNDS: S1 normal heart sound present and S2 normal heart sound present GI: COMMON NORMALS: Normal to inspection, nondistended, normoactive bowel sounds present, Soft to palpation and non-tender PALPATION: Yes Soft to palpation and Yes Tenderness to palpation present (GI) Extremity: COMMON NORMALS: no joint enlargement and no pedal edema Neuro: COMMON NORMALS: patient oriented x3 and moves all extremities SENSORIUM/ORIENTATION: Yes alert OTHER: She is having trouble following commands with dementia, hard of hearing. Recently some encephalopathy as well, although today is doing a bit better. She is laying on the right side so somewhat hard to tell, but does appear to have some pronator drift on the right. Could not assess sensation for symmetry/extinction. Does respond to me on both sides of the bed and tracks well. Does not appear to have obvious lateral vision deficit. Could not assess for extinction. Skin: COMMON NORMALS: no rashes or lesions noted GENERAL SKIN EXAM: no rashes or lesions noted Urinary Catheter Management: Del Cid: Cath Placed During This Visit: yes Reason for Continuing Indwelling Catheter: Accurate Measurement of Urinary Output in Critically Ill Patients Urinary Catheter Date of Insertion: 11/20/22 Urinary Catheter Time of Insertion: 23:29 Data 11/22/22 04:13 11/22/22 04:13 A&P Assessment and plan (1) Acute encephalopathy: Today she is more alert. Appears likely encephalopathy secondary to pneumonia superimposed delirium on top of dementia. Resolving hypertensive encephalopathy. Blood pressures have been better. Overnight actually low blood pressure. Discontinued her hydralazine this morning. Continue to monitor blood pressures, mental status. Daughter tells me still appears to favor the right side, assessment is difficult but may have some right-sided pronator drift. Possible small CVA as discussed with her daughter. As she is doing slightly better today, blood pressure now is better, will request PT, OT assessment. Rated riskMore confused this morning. Had a very difficult night. Became restless. [facility]one sitter had to be set up. Also has been noticed to be favoring the right side, as per her daughter this was found to be the case on the day of admission at assisted living as well. Possibly hypertensive encephalopathy, possibly infection related secondary to pneumonia. Oxygen saturation noted on the soft side, saturating about 90-91% while awake at rest. Not really coughing. Leukocytosis noted today 11.3. Blood pressure overall is much better than yesterday. As mental status appeared to worsen slightly with blood pressure decreasing to 140s/70s, as well as with consideration of possible CVA as discussed with her daughter, we held back on nicardipine drip with starting of oral medications. Targeting blood pressure 175/77 as per prior target. Later in the day again became more hypotensive, required to restart a drip. Started on treatment for possible pneumonia with ceftriaxone, azithromycin. UA not suggestive of UTI. With underlying dementia at elevated risk of delirium. Continue to monitor mental. Continue one-to-one sitter. At risk of further confusion. We will try to transfer out of ICU. (2) Hypertensive crisis: Labile blood pressure. Yesterday blood pressure still elevated up to 189/93 despite starting amlodipine, hydralazine, transiently required Cardene drip. Did better in the evening, then this morning hypotensive, 84/41. Added lower hydralazine for now discontinued. Then again up to 153/65 this morning. Continue atenolol only. Monitor blood pressures, at risk of deterioration with either severe hypertension again or hypotension and organ hypoperfusion, possible additional ischemia. Possible CVA as above. Needs continued treatment and monitoring in the hospital. Additional risk from bradycardia, continue cardiac monitoring. Heart rates down to 57. On atenolol. In case decreasing further may have to switch away from beta-jarrod. Reviewed chemistry panel, creatinine again with slight worsening down to 1, possibly secondary to episode of hypotension. CTA great vessels, no dissection. Head CT without bleed. Troponin series was only mild elevation. Denies chest pain. Possible pulmonary edema and right thalamic with noted worsening oxygenation versus possible pneumonia. Monitor on telemetry due to high risk of complications (3) Back pain: Today resolved. Daughter states has no history of complaints of back pain previously. Certainly may be osteoarthritis, however, with hypertensive crisis additionally assessed with CT angiogram as above. (4) Abdominal pain: Resolved. CT abdomen pelvis reviewed, findings suspicious for inflammatory change of distal esophagus. Otherwise no acute findings in the abdomen. Had PPI. Daughter reports history of constipation, left lower quadrant pain and tenderness on palpation abdomen is soft. Otherwise no history suggestive of ischemic bowel disease. Additional assessment with CT as above. (5) Headache: Resolved. Suspect related to hypertensive. CT head reviewed, without acute abnormality. (6) Low grade fever: Secondary to pneumonia. Started on ceftriaxone, azithromycin with improvement in leukocytosis, better oxygenation. Some improvement in encephalopathy as well. Continue antibiotics for now. Monitor oxygenation. Moderate risk group for mortality. COVID PCR panel reviewed, negative. Additionally left lower quadrant abdominal pain, constipation, CT abdomen followed up, possible mild distal esophagitis, otherwise no acute intra- abdominal findings. PPI added. (7) Abnormal renal function: Some worsening again today, suspect either following hypertensive crisis or episode of hypotension yesterday. Avoid hypotension. At risk of further adverse effects, cautious initiation of antihypertensive. Needs further treatment or monitoring in the hospital. Follow-up renal function requested. CK reviewed, not elevated. (8) Constipation: MiraLAX, continue her usual bowel regimen as well. Plan Possible CVA: Continue aspirin, statin. PT, OT assessment. ST. with hypertensive crisis, appears to have episodic high blood pressures, with some blood pressure fluctuation. Likely her biggest risk factor for CVA. Discussed options for further assessment with her daughter including CT angiogram yesterday, however, consensus is that she would not be candidate for additional intervention and the decision was to forego additional testing. No A-fib reported here. With dementia would certainly be high risk of bleeding with anticoagulation. Discussed risk of bleeding with aspirin. Decision is for not to continue. Decision made to be held pending on how she does with PT, OT. CAD with stent x2 Dementia Attestations Medical Necessity Statement*: Continue admission for assessment and management of acute encephalopathy, pneumonia, optimization of blood pressure control after hypertensive crisis, with labile blood pressure, hypotension this morning, at risk of significant deterioration with either hypertension and further comorbidities, or hypotension/organ hypoperfusion. Needs additional treatment and monitoring in the hospital. Diagnoses Acute encephalopathy G93.40 Hypertensive crisis I16.9 Back pain M54.9 Abdominal pain R10.9 Headache R51.9 Low grade fever R50.9 Abnormal renal function N28.9 Constipation K59.00
[2022-11-22] MEDS: lactated ringers 1,000 ML 75 ML IV (15:50)
[2022-11-22] MEDS: aspirin 81 mg EC Tablet PO (17:22)
[2022-11-22] MEDS: sertraline 50 mg Tablet PO (17:22)
[2022-11-22] MEDS: quetiapine 25 mg Tablet 50 MG PO (17:22)
[2022-11-22] MEDS: quetiapine 25 mg Tablet PO (17:22)
[2022-11-22] MEDS: cetirizine 10 mg Tablet PO (17:22)
--- NOTE | 2022-11-22 17:53 | PC.NURSE ---
Addendum entered by Rebeca Oruorke RN 11/22/22 17:59: Daughter aware via voicemail Original Note: Pt was taken to [facility] via wheelchair at 1745 on room air. Hearing aid and dentures placed in room. Daughter aware.
--- NOTE | 2022-11-22 19:03 | PC.NUTR ---
Sulema stated that patient was a transfer from ICU and before she came down she ate 50/240 at [employer].
[2022-11-22] MEDS: atorvastatin 40 mg Tablet PO (20:25)
[2022-11-23] VITALS (10 sets, daily range): BP systolic 144–181; BP diastolic 65–94; PULSE 56–74; RESP 15–18; TEMP 36.4–37.2; O2SAT 91–94
[2022-11-23] MEDS: lactated ringers 1,000 ML 75 ML IV ×2 (04:56→18:49)
[2022-11-23] MEDS: acetaminophen 325 mg Tablet 650 MG PO (04:57)
[2022-11-23 07:07] LABS: Basophils % 0.4 %; Eosinophils # 0.2 10^3/uL (0.0-0.8); Eosinophils % 2.8 %; Hematocrit 39.9 % (37.0-47.0); Hemoglobin 12.9 g/dL (11.5-15.3); Lymphocytes # 1.5 10^3/uL (0.8-4.8); Lymphocytes % 19.4 %; Mean Corpuscular HGB Conc 32.3 g/dL (30.0-36.0); Mean Corpuscular Hemoglobin 30.3 pg (28.0-34.0); Mean Corpuscular Volume 93.7 fl (81-99); Mean Platelet Volume 9.3 fL (7.4-10.4); Monocytes # 0.9 10^3/uL (0.2-0.9); Monocytes % 10.9 %; Neutrophils # 5.25 10^3/uL (1.8-7.7); Nucleated Red Blood Cells % 0 %; Platelet Count 145 10^3/cmm (130-400); Red Blood Count 4.26 10^6/uL (4.1-5.3); Red Cell Distribution Width 13.8 % (12.1-15.1)
[2022-11-23 07:30] LABS: Alanine Aminotransferase 18 U/L (0-33); Albumin Level 3.4 g/dL (3.5-5.2); Alkaline Phosphatase 90 U/L (35-105); Anion Gap 13.5 (5-19); Aspartate Amino Transferase 30 U/L (0-32); Blood Urea Nitrogen 21 mg/dL (8-23); Calcium 8.5 mg/dL (8.5-10.5); Carbon Dioxide 25 mmol/L (22-29); Chloride 109 mmol/L (98-107); Globulin 2.3 g/dL (1.3-4.6); Glucose 106 mg/dL (65-115); Osmolality Calculated 301 mOsm/kg (285-295); Potassium 3.5 mmol/L (3.5-5.1); Sodium 144 mmol/L (136-145); Total Bilirubin 1.1 mg/dL (0.15-1.2); Total Protein 5.7 g/dL (6.6-8.7)
[2022-11-23] MEDS: atenolol 50 mg Tablet 25 MG PO (09:29)
[2022-11-23] MEDS: fluticasone nasal spray 16gm Btl 1 SPRAY INTRANASAL ×2 (09:29→17:43)
[2022-11-23] MEDS: pantoprazole 40 mg SDV IVP (10:39)
[2022-11-23] MEDS: heparin 5,000 unit/mL INJ 1 mL 5000 UNIT SUBCUT ×2 (11:19→22:00)
--- NOTE | 2022-11-23 12:44 | PC.SOCIAL ---
IMM Update pg 2 of IMM updated and reviewed w/ patient and her daughter. Copy provided and copy dated, initialed and placed in chart.
[2022-11-23] MEDS: cefTRIAXone 1,000 MG in sodium chloride 0.9% (plus) 50 ML 100 MG IV (13:38)
[2022-11-23] MEDS: azithromycin 500 MG in sodium chloride 0.9% 250 ML 250 MG IV (14:17)
--- NOTE | 2022-11-23 17:09 | P.PN_ITS ---
Subjective Subjective: Anshul is alert awake, though disoriented to time and place. No agitation, pleasant. States that she would like to go home. Medications: Reviewed: Yes Vitals/I&O/Wt Last Vital Signs Temp 97.5 F L 11/23/22 16:00 Pulse 56 L 11/23/22 16:00 Resp 15 11/23/22 16:00 BP 181/66 11/23/22 16:00 Pulse Ox 92 11/23/22 16:00 O2 Del Method 11/23/22 11:38 O2 Flow Rate 2 11/22/22 20:18 11/23/22 11/23/22 11/23/22 06:59 14:59 22:59 Intake Total 982.5 / 2062.5 750 / 750 250 / 1000 Output Total 900 / 900 Balance 82.5 / 1162.5 750 / 750 250 / 1000 Weight last 48 hrs Weight 41.532 kg Weight 61.643 kg Physical Exam Narrative: General: No acute distress, AO x1-2 HEENT: PERRLA, pupils bilaterally equal and reactive, pallors not present Chest: Normal vesicular breath sounds, no added sounds, equal good air entry bilaterally CVS: S1-S2 regular, no murmurs, no tachycardia, no gallops, no rubs Abdomen: Soft, nontender, no organomegaly, bowel sounds present Neuro: No focal deficits, no facial deformity, AO x1-2, power 5/5 in all limbs Urinary Catheter Management: Del Cid: Cath Placed During This Visit: yes Reason for Continuing Indwelling Catheter: Accurate Measurement of Urinary Output in Critically Ill Patients Urinary Catheter Date of Insertion: 11/20/22 Urinary Catheter Time of Insertion: 23:29 Data 11/23/22 06:49 11/23/22 06:49 A&P Assessment and plan (1) Acute encephalopathy: She is alert, disoriented to time and place, correctly states her name, age and . Overall pleasant and well appearing Likely her AMS was related to pneumonia superimposed delirium on top of dementia. PT, OT assessment. Possibly hypertensive encephalopathy also contributing, possibly infection related secondary to pneumonia. Oxygen saturation noted on the soft side, saturating about 90-91% while awake at rest. Started on treatment for possible pneumonia with ceftriaxone, azithromycin. Will plan for 5 days treatment. UA not suggestive of UTI. With underlying dementia at elevated risk of delirium. Continue to monitor mental. Discontinue one-to-one sitter. (2) Hypertensive crisis: Labile blood pressure. Yesterday blood pressure still elevated up to 189/93 despite starting amlodipine, hydralazine, transiently required Cardene drip. Then discontinued due to hypotension. resume amlodipine 5mg daily. Added lower hydralazine for now discontinued. Then again up to 153/65 this morning. Continue atenolol only. Monitor blood pressures, at risk of deterioration with either severe hypertension again or hypotension and organ hypoperfusion, possible additional ischemia. Possible CVA contirbuting to high BP. . Needs continued treatment and monitoring in the hospital. Additional risk from bradycardia, continue cardiac monitoring. Heart rates down to 57. On atenolol. In case decreasing further may have to switch away from beta-jarrod. Reviewed chemistry panel, creatinine again with slight worsening down to 1, possibly secondary to episode of hypotension. CTA great vessels, no dissection. Head CT without bleed. Troponin series was only mild elevation. Denies chest pain. Possible pulmonary edema and right thalamic with noted worsening oxygenation versus possible pneumonia. Monitor on telemetry due to high risk of complications (3) Back pain: Today resolved. Daughter states has no history of complaints of back pain previously. Certainly may be osteoarthritis, however, with hypertensive crisis additionally assessed with CT angiogram as above. (4) Abdominal pain: Resolved. CT abdomen pelvis reviewed, findings suspicious for inflammatory change of distal esophagus. Otherwise no acute findings in the abdomen. Had PPI. Daughter reports history of constipation, left lower quadrant pain and tenderness on palpation abdomen is soft. Otherwise no history suggestive of ischemic bowel disease. Additional assessment with CT as above. (5) Headache: Resolved. Suspect related to hypertensive. CT head reviewed, without acute abnormality. (6) Low grade fever: Secondary to pneumonia. Started on ceftriaxone, azithromycin with improvement in leukocytosis, better oxygenation. Some improvement in encephalopathy as well. Continue antibiotics for now. Monitor oxygenation. Moderate risk group for mortality. COVID PCR panel reviewed, negative. Additionally left lower quadrant abdominal pain, constipation, CT abdomen followed up, possible mild distal esophagitis, otherwise no acute intra- abdominal findings. PPI added. (7) Abnormal renal function: Some worsening again today, suspect either following hypertensive crisis or episode of hypotension yesterday. Avoid hypotension. At risk of further advers e effects, cautious initiation of antihypertensive. Needs further treatment or monitoring in the hospital. Follow-up renal function requested. CK reviewed, not elevated. (8) Constipation: MiraLAX, continue her usual bowel regimen as well. Plan Possible CVA: Continue aspirin, statin. PT, OT assessment. ST. with hypertens jessenia crisis, appears to have episodic high blood pressures, with some blood pressure fluctuation. Likely her biggest risk factor for CVA. Discussed options for further assessment with her daughter including CT angiogram yesterday, however, consensus is that she would not be candidate for additional intervention and the decision was to forego additional testing. No A-fib reported here. With dementia would certainly be high risk of bleeding with anticoagulation. Discussed risk of bleeding with aspirin. Decision is for not to continue. Decision made to be held pending on how she does with PT, OT. CAD with stent x2 Dementia Attestations Medical Necessity Statement*: ongoing disposition planning Coding Level of Care Code Acute Code for Chg Fwd Diagnoses Acute encephalopathy G93.40 Hypertensive crisis I16.9 Back pain M54.9 Abdominal pain R10.9 Headache R51.9 Low grade fever R50.9 Abnormal renal function N28.9 Constipation K59.00
[2022-11-23] MEDS: quetiapine 25 mg Tablet PO (17:44)
[2022-11-23] MEDS: sertraline 50 mg Tablet PO (17:44)
[2022-11-23] MEDS: aspirin 81 mg EC Tablet PO (17:44)
[2022-11-23] MEDS: cetirizine 10 mg Tablet PO (17:44)
[2022-11-23] MEDS: quetiapine 25 mg Tablet 50 MG PO (17:44)
--- NOTE | 2022-11-23 18:47 | USR_ITS ---
PROCEDURE INFORMATION: Exam: US Duplex Right Upper Extremity Veins, Limited Exam date and time: 11/23/2022 7:08 PM Age: 87 years old Clinical indication: Edema, localized; Upper extremity, right; Patient HX: Patient has iv into right antecubital, which drains into the right cephalic vein. No prior history of dvt. ; Additional info: Red swollwen area, right upper arm TECHNIQUE: Imaging protocol: Real-time duplex ultrasound of the Right Upper Extremity with 2-D camacho scale, color Doppler flow and spectral waveform analysis with image documentation. Limited exam focused on the right upper extremity veins. COMPARISON: CT angio chest w abd pel w con 11/20/2022 7:42 PM FINDINGS: Right deep veins: Unremarkable. Axillary and brachial veins are patent throughout without thrombus. Normal Doppler waveforms. Normal compressibility and/or augmentation response. Visualized internal jugular and subclavian veins are patent. Right superficial veins: Thrombosis of the right cephalic vein is seen proximally in the upper arm. Soft tissues: Unremarkable. US/[place] [id number] IMPRESSION: 1. No right upper extremity deep venous thrombus. 2. Right upper arm cephalic vein superficial thrombosis.
--- NOTE | 2022-11-23 19:00 | PC.NURSE ---
Attempted to Doppler patient's right upper arm as requested by Dr. Ryan. Unable to note any blood flow Ultrasound ordered.
--- NOTE | 2022-11-23 19:06 | PC.NURSE ---
Pt is currently resting in bed with sitter at bedside. Nurse told charge nurse and the charge notified provider of arm pink, hard, and warm to touch on an old IV site. Pt has been confused and trying to get out of bed. Room is cleaned up and call light is within reach. No current needs at this time.
[2022-11-23] MEDS: atorvastatin 40 mg Tablet PO (22:00)
[2022-11-24] VITALS (9 sets, daily range): BP systolic 149–210; BP diastolic 60–80; PULSE 56–75; RESP 16–18; TEMP 36.5–36.8; O2SAT 90–95
[2022-11-24] MEDS: hyDRALAzine 20 mg/mL INJ 1 mL 10 MG IVP ×2 (00:54→05:35)
[2022-11-24] MEDS: amlodipine 10 mg Tablet PO (01:49)
[2022-11-24] MEDS: atenolol 50 mg Tablet 25 MG PO (09:00)
[2022-11-24] MEDS: amlodipine 5 mg Tablet 10 MG PO (09:01)
[2022-11-24] MEDS: fluticasone nasal spray 16gm Btl 1 SPRAY INTRANASAL ×2 (09:03→16:46)
[2022-11-24] MEDS: pantoprazole 40 mg SDV IVP (09:16)
[2022-11-24] MEDS: lactated ringers 1,000 ML 75 ML IV (10:37)
[2022-11-24] MEDS: heparin 5,000 unit/mL INJ 1 mL 5000 UNIT SUBCUT ×2 (10:37→22:41)
[2022-11-24] MEDS: azithromycin 500 MG in sodium chloride 0.9% 250 ML 250 MG IV (13:00)
[2022-11-24] MEDS: cefTRIAXone 1,000 MG in sodium chloride 0.9% (plus) 50 ML 100 MG IV (14:14)
--- NOTE | 2022-11-24 15:09 | P.PN_ITS ---
Subjective Subjective: Patient is much more alert awake and oriented today. Her Del Cid catheter was removed after which she is comfortable. Daughter at bedside report patient is back to her baseline mentation. Overnight patient had uncontrolled blood pressures. With maximum recorded at 210 systolic. She needed IV hy dralazine patient was asymptomatic at the time Medications: Reviewed: Yes Vitals/I&O/Wt Last Vital Signs Temp 97.9 F 11/24/22 11:43 Pulse 56 L 11/24/22 11:43 Resp 18 11/24/22 11:43 BP 168/69 11/24/22 11:43 Pulse Ox 90 11/24/22 11:43 O2 Del Method 11/24/22 04:00 O2 Flow Rate 2 11/22/22 20:18 11/24/22 11/24/22 11/24/22 06:59 14:59 22:59 Intake Total 1730 / 1730 Balance 1730 / 1730 Weight last 48 hrs Weight 43.715 kg Weight 41.532 kg Physical Exam Narrative: General: No acute distress, AO x3 HEENT: PERRLA, pupils bilaterally equal and reactive, pallors not present Chest: Normal vesicular breath sounds, no added sounds, equal good air entry bilaterally CVS: S1-S2 regular, no murmurs, no tachycardia, no gallops, no rubs Abdomen: Soft, nontender, no organomegaly, bowel sounds present Neuro: No focal deficits, no facial deformity, AO x3, power 5/5 in all limbs Urinary Catheter Management: Del Cid: Cath Placed During This Visit: yes, but has since been removed by the nurse Reason for Continuing Indwelling Catheter: Other Urinary Catheter Date of Insertion: 11/20/22 Urinary Catheter Time of Insertion: 23:29 Date Urinary Catheter Removed: 11/23/22 Time Urinary Catheter Discontinued: 18:58 Data 11/23/22 06:49 11/23/22 06:49 A&P Assessment and plan (1) Acute encephalopathy: This is now resolved. Patient is back to her baseline as confirmed by her daughter at bedside. She is alert, awake and oriented to time place and person Overall pleasant and well appearing Likely her AMS was related to pneumonia superimposed delirium on top of dementia. This is now resolved PT, OT assessment appreciated. Possibly hypertensive encephalopathy also contributing, possibly infection related secondary to pneumonia. Oxygen saturation noted on the soft side, saturating about 90-91% while awake at rest. Started on treatment for possible pneumonia with ceftriaxone, azithromycin. Discontinue today as has completed 5 days of treatment. UA not suggestive of UTI. CTA great vessels, no dissection. Head CT without bleed. (2) Hypertensive crisis: Labile blood pressure. Previously patient was noted to be hypotensive with addition of antihypertensives. However overnight her blood pressure ranged up to 210 systolic. She received amlodipine 10 mg and has been started on a daily dose with the same. We will add hydralazine 10 mg p.o. 3 times daily. Goal for today is to titrate her blood pressure medication and optimize it prior to discharge home. We will half the dose of atenolol to 12.5 mg p.o. daily given bradycardic in the 50s. (3) Back pain: Today resolved. (4) Abdominal pain: Resolved. CT abdomen pelvis reviewed, findings suspicious for inflammatory change of distal esophagus. Otherwise no acute findings in the abdomen. Had PPI. Daughter reports history of constipation, left lower quadrant pain and tenderness on palpation abdomen is soft. Otherwise no history suggestive of ischemic bowel disease. CT of the chest abdomen and pelvis negative for any other acute changes. (5) Headache: Resolved (6) Low grade fever: Resolved (7) Abnormal renal function: Now normal (8) Constipation: MiraLAX, continue her usual bowel regimen as well. Plan The nextPossible CVA: Continue aspirin, statin. PT, OT assessment. ST. with hypertensive crisis, appears to have episodic high blood pressures, with some blood pressure fluctuation. Goal for today is to optimize her blood pressure, anticipate discharge CAD with stent x2 Dementia Attestations Medical Necessity Statement*: optimize blood pressure control today, anticipate discharge in the upcoming 24 to 48 hours. Coding Level of Care Code 77812 Moderate MDM includes number and complexity of problems actively addressed during encounter, amount and/or complexity of data reviewed/ordered and described risk of complication, morbidity or mortality of management as docume nted Diagnoses Acute encephalopathy G93.40 Hypertensive crisis I16.9 Back pain M54.9 Abdominal pain R10.9 Headache R51.9 Low grade fever R50.9 Abnormal renal function N28.9 Constipation K59.00
[2022-11-24] MEDS: hyDRALAzine 10 mg Tablet PO ×2 (16:25→20:24)
[2022-11-24] MEDS: cetirizine 10 mg Tablet PO (16:47)
[2022-11-24] MEDS: sertraline 50 mg Tablet PO (16:47)
[2022-11-24] MEDS: quetiapine 25 mg Tablet PO (16:47)
[2022-11-24] MEDS: aspirin 81 mg EC Tablet PO (16:49)
[2022-11-24] MEDS: quetiapine 25 mg Tablet 50 MG PO (16:49)
[2022-11-24] MEDS: atorvastatin 40 mg Tablet PO (20:24)
[2022-11-25] VITALS: BP 188/51; PULSE 70; RESP 16; TEMP 36.8; O2SAT 91
[2022-11-25 03:56] VITALS: BP 195/66; PULSE 62; RESP 17; TEMP 36.4; O2SAT 92
[2022-11-25 07:35] VITALS: BP 161/77; PULSE 63; RESP 16; TEMP 36.8; O2SAT 95
[2022-11-25] MEDS: hyDRALAzine 10 mg Tablet PO ×2 (09:28→14:08)
[2022-11-25] MEDS: amlodipine 5 mg Tablet 10 MG PO (09:28)
[2022-11-25] MEDS: atenolol 50 mg Tablet 12.5 MG PO (09:29)
[2022-11-25] MEDS: heparin 5,000 unit/mL INJ 1 mL 5000 UNIT SUBCUT (09:29)
[2022-11-25] MEDS: pantoprazole 40 mg SDV IVP (09:31)
[2022-11-25] MEDS: fluticasone nasal spray 16gm Btl 1 SPRAY INTRANASAL (09:34)
--- NOTE | 2022-11-25 10:07 | PC.SOCIAL ---
IMM update IMM updated with patient. Copy page 2 provided. Verbalized understanding. Initial,dated,timed and placed in chart.
[2022-11-25 12:00] VITALS: BP 149/75; PULSE 77; RESP 17; TEMP 36.4; O2SAT 94
--- NOTE | 2022-11-25 14:10 | PC.NURSE ---
Report called to MARLIN Miller, at [facility].
[2022-11-25 14:12] LABS: SARS Covid-2 Antigen negative (Negative)
--- NOTE | 2022-11-25 15:02 | PM.DCS ---
Discharge Providers Date of Admission: 11/20/22 18:19 Date of Discharge: November 25, 2022 Attending Provider at Admission: Tim Nash Attending Provider at Discharge: Anne Ryan MD Primary Care Provider: Jorden Melgoza DO Diagnoses at Discharge Discharge Diagnosis (1) Acute encephalopathy: Status: Acute (2) Hypertensive crisis: Status: Acute (3) Back pain: Status: Acute (4) Abdominal pain: Status: Acute (5) Headache: Status: Acute (6) Low grade fever: Status: Acute (7) Abnormal renal function: Status: Acute (8) Constipation: Status: Acute Reason for Visit Reason for Visit: HYPERTENSION/ DEMENTIA Hospital Course Hospital Course 87-year-old lady with history of dementia, assisted living resident, was admitted with hypertensive crisis, blood pressure 220/110 unresponsive to p.o. medicine and IV pushes, started on nicardipine drip, moved to ICU. Had some back pain, assessed with CTA, no dissection, was having a headache as well, no bleeding on CT head, next day information also came in that she was noticed preferring the right side apparently at assisted living earlier in the day before the admission. Patient may have had possible small CVA, she was not a candidate for any reperfusion treatment. She spiked a low-grade fever during admission , appears to have had possible pneumonia in right lower lobe, for which she received treatment with azithromycin. She was started on oral hypertensives, much titration was needed due to labile BP. She is currently best controlled on a regimen of Amlodipine 10mg po daily and hydralazine 10mg po TID. Hydralazine may be titrated up post discharge if needed after folow up with PCP. . She had a few episodes of acute delirium during admission, but is now back to her baseline mentation over the last 48 hrs. Initially her daughter stated that with her dementia overall she likely may also be looking at transitioning to memory unit in [id number] future, however given that patient's mentation improved significantly by discharge, she was discharged back to assisted living facility. Physical Exam Narrative: General: No acute distress, AO x2-3 HEENT: PERRLA, pupils bilaterally equal and reactive, pallors not present Chest: Normal vesicular breath sounds, no added sounds, equal good air entry bilaterally CVS: S1-S2 regular, no murmurs, no tachycardia, no gallops, no rubs Abdomen: Soft, nontender, no organomegaly, bowel sounds present Neuro: No focal deficits, no facial deformity, AO x3, power 5/5 in all limbs Extremities: no edema, clubbing or cyanosis Urinary Catheter Management: Del Cid: Cath Placed During This Visit: yes, but has since been removed by the nurse Reason for Continuing Indwelling Catheter: Other Urinary Catheter Date of Insertion: 11/20/22 Urinary Catheter Time of Insertion: 23:29 Date Urinary Catheter Removed: 11/23/22 Time Urinary Catheter Discontinued: 18:58 Discharge Data Studies Completed and Pending Completed Studies During Hospitalization Category Date Time Status CT angio chest w abd pel w con Stat Cat Scan 11/20/22 18:[address] head wo con* [id number] Routine Cat Scan 11/20/22 19:15 Completed XR chest 1V portable [id number] Stat Exams 11/20/22 15:00 Completed CV renal doppler [id number] Routine Ultrasound 11/21/22 08:43 [place] [id number] Routine Ultrasound 11/23/22 18:47 Completed CV. echo complete* [id number] Routine Ultrasound 11/21/22 08:47 Completed Radiology Impressions Chest X-Ray 11/20/22 15:00 Impression: 1. Patchy opacity in the right lower lobe which could represent atelectasis, pneumonia and/or effusion. 2. Cardiomegaly and atherosclerosis. Chest/Abdomen/Pelvis CT 11/20/22 18:43 IMPRESSION: Findings suspicious for inflammatory change at distal esophagus. Otherwise, no acute findings. IMPRESSION: No acute findings. Head CT 11/20/22 19:15 IMPRESSION: No acute intracranial abnormality. Renal Ultrasound 11/21/22 08:43 IMPRESSION: Normal kidneys. No hemodynamically significant stenosis. Venous Duplex 11/23/22 18:47 IMPRESSION: 1. No right upper extremity deep venous thrombus. 2. Right upper arm cephalic vein superficial thrombosis. Laboratory Results WBC 8.0 10^3/uL (4.0-10.0) 11/23/22 06:49 Corrected WBC Cancelled 11/23/22 04:56 RBC 4.26 10^6/uL (4.1-5.3) 11/23/22 06:49 Hgb 12.9 g/dL (11.5-15.3) 11/23/22 06:49 Hct 39.9 % (37.0-47.0) 11/23/22 06:49 MCV 93.7 fl (81-99) 11/23/22 06:49 MCH 30.3 pg (28.0-34.0) 11/23/22 06:49 MCHC 32.3 g/dL (30.0-36.0) D 11/23/22 06:49 RDW 13.8 % (12.1-15.1) 11/23/22 06:49 Plt Count 145 10^3/cmm (130-400) 11/23/22 06:49 MPV 9.3 fL (7.4-10.4) 11/23/22 06:49 Gran % Cancelled 11/23/22 04:56 Neut % (Auto) 66.0 % 11/23/22 06:49 Lymph % (Auto) 19.4 % 11/23/22 06:49 [place] % (Auto) 10.9 % 11/23/22 06:49 Eos % (Auto) 2.8 % 11/23/22 06:49 Baso % (Auto) 0.4 % 11/23/22 06:49 Neut # (Auto) 5.25 10^3/uL (1.8-7.7) 11/23/22 06:49 Lymph # (Auto) 1.5 10^3/uL (0.8-4.8) 11/23/22 06:49 [place] # (Auto) 0.9 10^3/uL (0.2-0.9) 11/23/22 06:49 Eos # (Auto) 0.2 10^3/uL (0.0-0.8) 11/23/22 06:49 Baso # (Auto) 0.0 10^3/uL (0.0-0.1) 11/23/22 06:49 Absolute Gran (auto) Cancelled 11/23/22 04:56 Nucleated RBC % (auto) 0 % 11/23/22 06:49 Nucleated RBCs # 0.0 /100WBC 11/23/22 06:49 Sodium 144 mmol/L (136-145) 11/23/22 06:49 Potassium 3.5 mmol/L (3.5-5.1) 11/23/22 06:49 Chloride 109 mmol/L (98-107) H 11/23/22 06:49 Carbon Dioxide 25 mmol/L (22-29) 11/23/22 06:49 Anion Gap 13.5 (5-19) 11/23/22 06:49 BUN 21 mg/dL (8-23) 11/23/22 06:49 Creatinine 0.8 mg/dL (0.5-0.9) 11/23/22 06:49 GFR Calculation Not Reportable 11/23/22 06:49 Glucose 106 mg/dL (65-115) 11/23/22 06:49 Calculated Osmolality 301 mOsm/kg (285-295) H 11/23/22 06:49 Calcium 8.5 mg/dL (8.5-10.5) 11/23/22 06:49 Total Bilirubin 1.1 mg/dL (0.15-1.2) 11/23/22 06:49 AST 30 U/L (0-32) 11/23/22 06:49 ALT 18 U/L (0-33) 11/23/22 06:49 Alkaline Phosphatase 90 U/L (35-105) 11/23/22 06:49 Creatine Kinase 110 U/L (26-192) 11/20/22 18:20 Troponin T Baseline 16 ng/L (0-10) H 11/20/22 15:39 Troponin T 120 Minute 16.80 ng/L (0-10) H 11/20/22 18:20 Delta Troponin T 0.80 ABS# (0-10) 11/20/22 18:20 Troponin T Hi Sens 6Hr 20.37 ng/L (0-10) H 11/21/22 00:50 Troponin T Hi Sens 6Hr Delta 4.37 ng/L (0-12) 11/21/22 00:50 Total Protein 5.7 g/dL (6.6-8.7) L 11/23/22 06:49 Albumin 3.4 g/dL (3.5-5.2) L 11/23/22 06:49 Globulin 2.3 g/dL (1.3-4.6) 11/23/22 06:49 Urine Color Yellow (Yellow) 11/20/22 16:37 Urine Appearance Clear (CLEAR) 11/20/22 16:37 Urine pH 6 (5-7) 11/20/22 16:37 Ur Specific [place] 1.015 (1.005-1.030) 11/20/22 16:37 Urine Protein Neg (Negative) 11/20/22 16:37 Urine Glucose (UA) Norm (Normal) 11/20/22 16:37 Urine Ketones Negative (Negative) 11/20/22 16:37 Urine Blood Neg (Negative) 11/20/22 16:37 Urine Nitrate Negative (Negative) 11/20/22 16:37 Urine Bilirubin Neg (Negative) 11/20/22 16:37 Urine Urobilinogen Norm mg/dL (Negative) 11/20/22 16:37 Ur Leukocyte Esterase Negative (Negative) 11/20/22 16:37 Coronavirus 229E (PCR) Not detected (NOT DETECT) 11/20/22 07:18 SARS-CoV-2 (PCR) Not detected (NOT DETECT) 11/20/22 07:18 SARS-CoV-2 Ag (Rapid) negative (Negative) 11/25/22 13:45 Vitals Last Vital Signs Temp 97.6 F 11/25/22 12:00 Pulse 77 11/25/22 12:00 Resp 17 11/25/22 12:00 BP 149/75 11/25/22 12:00 Pulse Ox 94 11/25/22 12:00 O2 Del Method 11/25/22 12:00 O2 Flow Rate 2 11/24/22 20:00 Discharge Plan Discharge Patient Disposition: Home Condition: Stable Prescriptions: New hydralazine 10 mg Tablet 10 mg PO TID 30 Days Qty: 90 0RF amlodipine 5 mg Tablet 10 mg PO DAILY 30 Days Qty: 30 0RF Protonix 40 mg tablet,delayed release (DR/EC) 40 mg PO DAILY 28 Days Qty: 30 0RF Continued quetiapine [Seroquel] 50 mg tablet 50 mg PO QPM rosuvastatin [Crestor] 10 mg tablet 10 mg PO BEDTIME aspirin [Adult Aspirin Regimen] 81 mg tablet,delayed release (DR/EC) 81 mg PO QPM vitamin B complex Capsule 1 cap PO DAILY [id number] 500 mg-15 mcg- 1,000 mcg-16 mg capsule 1 cap PO DAILY Seroquel 25 mg Tablet 25 mg PO QPM Tylenol 8 Hour 650 mg Tablet Extended Release 650 mg PO Q8H PRN (Reason: Pain) Milk of Magnesia 400 mg/5 mL Suspension 400 mg PO DAILY PRN (Reason: Constipation) bisacodyl 10 mg Suppository 10 mg NV DAILY PRN (Reason: Constipation) Fleet Enema 19-7 gram/118 mL Enema 118 ml NV DAILY PRN (Reason: Constipation) Culturelle 10 billion cell Capsule 1 cap PO DAILY PRN (Reason: unknown) fluticasone propionate 50 mcg/actuation [place],Suspension 1 spray INTRANASAL BID Rx Instructions: administer into each nostril Zoloft 50 mg Tablet 50 mg PO QPM Vitamin D3 25 mcg (1,000 unit) Capsule 25 mcg PO DAILY Mucinex 1,200 mg Tablet Extended Release 12hr 1,200 mg PO Q12H PRN (Reason: Congestion) melatonin 5 mg Tablet 5 mg PO BEDTIME Zyrtec 10 mg Capsule 10 mg PO QPM Women's 50 Plus Multivitamin 400 mcg-500 mg calcium-20 mcg Tablet 1 tab PO DAILY Discharge Orders: Discharge Order (Routine); Ordered 11/25/22 Ordered By: Anne Ryan Referrals: [facility] [Outside] Jorden Melgoza DO [Primary Care Provider] - 2 weeks Patient Instructions: Hydralazine (By mouth), Amlodipine (By mouth), Pantoprazole (By mouth), Opioid Safety Discharge Attestations Time Spent in Discharge Care*: greater than 30 min Quality Metrics Clinical Quality Measures [ No reported AMI, CVA or VTE this stay] Coding Level of Care Code Acute Code for Chg Fwd Diagnoses Acute encephalopathy G93.40 Hypertensive crisis I16.9 Back pain M54.9 Abdominal pain R10.9 Headache R51.9 Low grade fever R50.9 Abnormal renal function N28.9 Constipation K59.00
== END 2022-11-25 14:34 | disposition home or self-care (01) | DRG 304 ==
LOC: ER 15:46 → ICU 18:20 → MEDSURG 11-22 17:36
PROVIDERS: Admitting Provider Internal Medicine; Emergency Provider Family Medicine; PCP Internal Medicine; Visit Provider Student in an Organized Health Care Education/Training Program
DX: I16.9 Hypertensive crisis, unspecified (principal); J18.9 Pneumonia, unspecified organism; F05 Delirium due to known physiological condition; N17.9 Acute kidney failure, unspecified; I67.4 Hypertensive encephalopathy; I82.611 Acute embolism and thrombosis of superficial veins of right upper extremity; T82.818A Embolism due to vascular prosthetic devices, implants and grafts, initial encounter; F03.90 Unspecified dementia, unspecified severity, without behavioral disturbance, psychotic disturbance, mood disturbance, and anxiety; Z79.82 Long term (current) use of aspirin; I10 Essential (primary) hypertension; I25.10 Atherosclerotic heart disease of native coronary artery without angina pectoris; Z95.5 Presence of coronary angioplasty implant and graft; K59.00 Constipation, unspecified; M54.9 Dorsalgia, unspecified; Z66 Do not resuscitate; Z86.73 Personal history of transient ischemic attack (TIA), and cerebral infarction without residual deficits; Z97.4 Presence of external hearing-aid; Y82.9 Unspecified medical devices associated with adverse incidents
CPT/HCPCS: 36415; 51702; 70450; 71045; 71275; 74177; 80048; 80053; 81003; 82550; 84484; 85025; 87426; 87635; 92507; 92523; 92526; 92610; 93005; 93306; 93971; 93975; 96365; 96372; 96375; 97116; 97161; 97166; 97530; 97535; 99291; C9113; J0360; J0456; J0696; J1644; J2060; J3486; J3490; J7050; J7120; Q9967

== ENCOUNTER → 2023-01-11 12:54 | Outpatient (BNVA) | payer MEDICARE, SELFPAY | PROVIDERS: PCP Internal Medicine; Visit Provider Podiatrist Foot & Ankle Surgery | DX: L60.3 Nail dystrophy (principal); I73.9 Peripheral vascular disease, unspecified; M20.41 Other hammer toe(s) (acquired), right foot; M20.42 Other hammer toe(s) (acquired), left foot; L84 Corns and callosities | CPT/HCPCS: 11057; 11721 ==

== ENCOUNTER → 2023-04-14 08:38 | Outpatient (BNVA) | payer MEDICARE, SELFPAY | PROVIDERS: PCP Internal Medicine; Visit Provider Podiatrist Foot & Ankle Surgery | DX: I73.9 Peripheral vascular disease, unspecified (principal); M20.41 Other hammer toe(s) (acquired), right foot; M20.42 Other hammer toe(s) (acquired), left foot; L60.3 Nail dystrophy; L84 Corns and callosities | CPT/HCPCS: 11721 ==

== ENCOUNTER → 2023-05-26 09:18 | Outpatient (BNVA) | payer MEDICARE, SELFPAY | PROVIDERS: PCP Internal Medicine; Visit Provider Podiatrist Foot & Ankle Surgery | DX: M20.41 Other hammer toe(s) (acquired), right foot (principal); M20.42 Other hammer toe(s) (acquired), left foot; L60.3 Nail dystrophy; I73.9 Peripheral vascular disease, unspecified; L97.512 Non-pressure chronic ulcer of other part of right foot with fat layer exposed | CPT/HCPCS: 11721; 99213 ==

== ENCOUNTER → 2023-06-02 14:54 | Outpatient (BNVA) | payer MEDICARE, SELFPAY | PROVIDERS: PCP Internal Medicine; Visit Provider Podiatrist Foot & Ankle Surgery | DX: M20.41 Other hammer toe(s) (acquired), right foot (principal); M20.42 Other hammer toe(s) (acquired), left foot; I73.9 Peripheral vascular disease, unspecified; L97.511 Non-pressure chronic ulcer of other part of right foot limited to breakdown of skin | CPT/HCPCS: 99214 ==

== ENCOUNTER → 2023-06-30 12:37 | Outpatient (BNVA) | payer MEDICARE, SELFPAY | PROVIDERS: PCP Internal Medicine; Visit Provider Podiatrist Foot & Ankle Surgery | DX: Z51.89 Encounter for other specified aftercare (principal); M20.41 Other hammer toe(s) (acquired), right foot; M20.42 Other hammer toe(s) (acquired), left foot; I73.9 Peripheral vascular disease, unspecified; L97.511 Non-pressure chronic ulcer of other part of right foot limited to breakdown of skin | CPT/HCPCS: 99213 ==

== ENCOUNTER → 2023-07-28 13:50 | Outpatient (BNVA) | payer MEDICARE, SELFPAY | PROVIDERS: PCP Internal Medicine; Visit Provider Podiatrist Foot & Ankle Surgery | DX: M20.41 Other hammer toe(s) (acquired), right foot (principal); M20.42 Other hammer toe(s) (acquired), left foot; I73.9 Peripheral vascular disease, unspecified; L97.511 Non-pressure chronic ulcer of other part of right foot limited to breakdown of skin | CPT/HCPCS: 99213 ==

== ENCOUNTER → 2023-08-30 09:02 | Outpatient (BNVA) | payer MEDICARE, SELFPAY | PROVIDERS: PCP Internal Medicine; Visit Provider Podiatrist Foot & Ankle Surgery | DX: M20.41 Other hammer toe(s) (acquired), right foot (principal); M20.42 Other hammer toe(s) (acquired), left foot; I73.9 Peripheral vascular disease, unspecified; L97.512 Non-pressure chronic ulcer of other part of right foot with fat layer exposed | CPT/HCPCS: 11042 ==

== ENCOUNTER → 2023-09-20 10:52 | Outpatient (BNVA) | payer MEDICARE, SELFPAY | PROVIDERS: PCP Internal Medicine; Visit Provider Podiatrist Foot & Ankle Surgery | DX: Z51.89 Encounter for other specified aftercare (principal); M20.41 Other hammer toe(s) (acquired), right foot; M20.42 Other hammer toe(s) (acquired), left foot; I73.9 Peripheral vascular disease, unspecified; L97.512 Non-pressure chronic ulcer of other part of right foot with fat layer exposed | CPT/HCPCS: 11042 ==

== ENCOUNTER → 2023-10-11 08:57 | Outpatient (BNVA) | payer MEDICARE, SELFPAY | PROVIDERS: PCP Internal Medicine; Visit Provider Podiatrist Foot & Ankle Surgery | DX: M20.41 Other hammer toe(s) (acquired), right foot (principal); M20.42 Other hammer toe(s) (acquired), left foot; I73.9 Peripheral vascular disease, unspecified; L97.512 Non-pressure chronic ulcer of other part of right foot with fat layer exposed; Z51.89 Encounter for other specified aftercare | CPT/HCPCS: 11042 ==

== ENCOUNTER → 2023-11-01 08:16 | Outpatient (BNVA) | payer MEDICARE, SELFPAY | PROVIDERS: PCP Internal Medicine; Visit Provider Podiatrist Foot & Ankle Surgery | DX: M20.41 Other hammer toe(s) (acquired), right foot (principal); M20.42 Other hammer toe(s) (acquired), left foot; I73.9 Peripheral vascular disease, unspecified; L97.512 Non-pressure chronic ulcer of other part of right foot with fat layer exposed | CPT/HCPCS: 11042 ==

== ENCOUNTER → 2023-11-23 08:08 | Outpatient (BNVA) | payer MEDICARE, SELFPAY | PROVIDERS: PCP Internal Medicine; Visit Provider Podiatrist Foot & Ankle Surgery | DX: M20.41 Other hammer toe(s) (acquired), right foot (principal); M20.42 Other hammer toe(s) (acquired), left foot; I73.9 Peripheral vascular disease, unspecified; L97.512 Non-pressure chronic ulcer of other part of right foot with fat layer exposed | CPT/HCPCS: 99213 ==

== ENCOUNTER → 2023-12-14 13:21 | Outpatient (BNVA) | payer MEDICARE, SELFPAY | PROVIDERS: PCP Internal Medicine; Visit Provider Podiatrist Foot & Ankle Surgery | DX: Z51.89 Encounter for other specified aftercare (principal); M20.41 Other hammer toe(s) (acquired), right foot; M20.42 Other hammer toe(s) (acquired), left foot; I73.9 Peripheral vascular disease, unspecified; L97.512 Non-pressure chronic ulcer of other part of right foot with fat layer exposed | CPT/HCPCS: 11042 ==

== ENCOUNTER → 2024-01-04 14:04 | Outpatient (BNVA) | payer MEDICARE, SELFPAY | PROVIDERS: PCP Internal Medicine; Visit Provider Podiatrist Foot & Ankle Surgery | DX: M20.41 Other hammer toe(s) (acquired), right foot (principal); M20.42 Other hammer toe(s) (acquired), left foot; I73.9 Peripheral vascular disease, unspecified; L97.512 Non-pressure chronic ulcer of other part of right foot with fat layer exposed; L60.3 Nail dystrophy | CPT/HCPCS: 11042; 11721 ==

== ENCOUNTER → 2024-01-26 13:52 | Outpatient (BNVA) | payer MEDICARE, SELFPAY | PROVIDERS: PCP Internal Medicine; Visit Provider Podiatrist Foot & Ankle Surgery | DX: M20.41 Other hammer toe(s) (acquired), right foot (principal); M20.42 Other hammer toe(s) (acquired), left foot; I73.9 Peripheral vascular disease, unspecified; L97.512 Non-pressure chronic ulcer of other part of right foot with fat layer exposed | CPT/HCPCS: 99213 ==

== ENCOUNTER → 2024-02-23 09:39 | Outpatient (BNVA) | payer MEDICARE, SELFPAY | PROVIDERS: PCP Internal Medicine; Visit Provider Podiatrist Foot & Ankle Surgery | DX: L97.512 Non-pressure chronic ulcer of other part of right foot with fat layer exposed (principal); M20.41 Other hammer toe(s) (acquired), right foot; M20.42 Other hammer toe(s) (acquired), left foot; I73.9 Peripheral vascular disease, unspecified | CPT/HCPCS: 99213 ==

== ENCOUNTER → 2024-03-27 09:04 | Outpatient (BNVA) | payer MEDICARE, SELFPAY | PROVIDERS: PCP Internal Medicine; Visit Provider Podiatrist Foot & Ankle Surgery | DX: L97.512 Non-pressure chronic ulcer of other part of right foot with fat layer exposed (principal); M20.41 Other hammer toe(s) (acquired), right foot; M20.42 Other hammer toe(s) (acquired), left foot; I73.9 Peripheral vascular disease, unspecified | CPT/HCPCS: 99213 ==

== ENCOUNTER → 2024-04-24 09:33 | Outpatient (BNVA) | payer MEDICARE, SELFPAY | PROVIDERS: PCP Internal Medicine; Visit Provider Podiatrist Foot & Ankle Surgery | DX: L97.512 Non-pressure chronic ulcer of other part of right foot with fat layer exposed (principal); M20.41 Other hammer toe(s) (acquired), right foot; M20.42 Other hammer toe(s) (acquired), left foot; I73.9 Peripheral vascular disease, unspecified | CPT/HCPCS: 11042 ==

== ENCOUNTER → 2024-05-29 08:58 | Outpatient (BNVA) | payer MEDICARE, SELFPAY | PROVIDERS: PCP Internal Medicine; Visit Provider Podiatrist Foot & Ankle Surgery | DX: Z51.89 Encounter for other specified aftercare (principal); L97.512 Non-pressure chronic ulcer of other part of right foot with fat layer exposed; M20.41 Other hammer toe(s) (acquired), right foot; M20.42 Other hammer toe(s) (acquired), left foot; I73.9 Peripheral vascular disease, unspecified | CPT/HCPCS: 99213 ==

== ENCOUNTER → 2024-07-05 09:01 | Outpatient (BNVA) | payer MEDICARE, SELFPAY | PROVIDERS: PCP Internal Medicine; Visit Provider Podiatrist Foot & Ankle Surgery | DX: L97.512 Non-pressure chronic ulcer of other part of right foot with fat layer exposed (principal); M20.41 Other hammer toe(s) (acquired), right foot; M20.42 Other hammer toe(s) (acquired), left foot; I73.9 Peripheral vascular disease, unspecified; L60.3 Nail dystrophy | CPT/HCPCS: 11042; 11721 ==

== ENCOUNTER → 2024-08-09 09:37 | Outpatient (BNVA) | payer MEDICARE, SELFPAY | PROVIDERS: PCP Internal Medicine; Visit Provider Podiatrist Foot & Ankle Surgery | DX: L97.512 Non-pressure chronic ulcer of other part of right foot with fat layer exposed (principal); L60.3 Nail dystrophy; M20.41 Other hammer toe(s) (acquired), right foot; M20.42 Other hammer toe(s) (acquired), left foot; I73.9 Peripheral vascular disease, unspecified | CPT/HCPCS: 11042 ==

== ENCOUNTER → 2024-09-06 08:45 | Outpatient (BNVA) | payer MEDICARE, SELFPAY | PROVIDERS: PCP Internal Medicine; Visit Provider Podiatrist Foot & Ankle Surgery | DX: L97.512 Non-pressure chronic ulcer of other part of right foot with fat layer exposed (principal); M20.41 Other hammer toe(s) (acquired), right foot; M20.42 Other hammer toe(s) (acquired), left foot; I73.9 Peripheral vascular disease, unspecified | CPT/HCPCS: 11042 ==

== ENCOUNTER 2024-10-12 14:54 | Observation (INO) | payer MEDICARE, SELFPAY ==
[2024-10-12] VITALS (10 sets, daily range): BP systolic 151–221; BP diastolic 62–127; PULSE 63–117; RESP 16–84; TEMP 36.6–37.7; O2SAT 90–95; BMI 28.3
--- NOTE | 2024-10-12 15:06 | ECG_ITS ---
[facility]: [facility]24[facility]12 Pat Name: Nguyen Valencia Department: Room: Gender: Female Television Cable Installer: : 1935 Requested By: Krys Bermudez Order Number: [id number] Elza MD: Baldo Diaz M.D. Measurements Intervals [place] Rate: 101 P: -10 ID: 200 QRS: -23 QRSD: 89 T: 43 QT: 340 QTc: 441 Interpretive Statements SINUS TACHYCARDIA BORDERLINE LEFT AXIS DEVIATION [QRS AXIS < -20] MINIMAL VOLTAGE CRITERIA FOR LVH, CONSIDER NORMAL VARIANT [MEETS CRITERIA IN ONE OF: R(aVL), S(V1), R(V5), R(V5/V6)+S(V1)] ABNORMAL RHYTHM ECG Compared to ECG 11/21/2022 00:07:50 Sinus rhythm no longer present T-wave abnormality no longer present Electronically Signed On 10-12-2024 18:22:57 WOMEN SPECIALIST by Baldo Diaz M.D. [email or web address]
--- NOTE | 2024-10-12 15:08 | XRR_ITS ---
PROCEDURE INFORMATION: Exam: XR Chest Exam date and time: 10/12/2024 3:19 PM Age: 89 years old Clinical indication: Fever; Patient HX: SOB and hypertension TECHNIQUE: Imaging protocol: Radiologic exam of the chest. Views: 1 view. COMPARISON: CT angio chest w abd pel w con 11/20/2022 7:42 PM FINDINGS: Lungs: Patchy right lung base consolidation. Subtle bilateral perihilar streakiness and bronchial wall thickening. Linear atelectasis suggested in the left lung base. Pleural spaces: Unremarkable. No pleural effusion. No pneumothorax. Heart/Mediastinum: Moderate cardiomegaly. Bones/joints: Bone demineralization. No acutely displaced fractures. XR/XR chest 1V portable [id number] IMPRESSION: 1. Patchy right lung base consolidation. Suspicious for pneumonia. 2. Subtle bilateral perihilar streakiness and bronchial wall thickening. Suspicious for bronchitis.
--- NOTE | 2024-10-12 15:16 | ED_ITS ---
HPI - Fever 2 General: Chief Complaint: Fever Stated Complaint: fever, hypertension Time Seen by Provider: 10/12/24 14:56 Source: EMS Mode of arrival: EMS Limitations: altered mental status History of Present Illness: 89-year-old female is here from halfway patient has been having fever there along with some hypertension increased confusion along with shortness of breath. Patient's requiring 2 L oxygen here she has not typically on oxygen at home. Patient does have confusion history is difficult to obtain from her due to her confusion. Related Data Home Medications Medication Instructions Recorded Confirmed aspirin 81 mg tablet,delayed 81 mg PO QPM 10/12/22 10/12/24 release (Adult Aspirin Regimen) rosuvastatin 10 mg tablet (Crestor) 10 mg PO BEDTIME 10/12/22 10/12/24 vit C 500 mg-D3 15 mcg-folic 1,000 1 cap PO DAILY 10/12/22 10/12/24 mcg-zinc 16 by-qevigj-pdkw capsule vitamin B complex 1 cap PO DAILY 10/12/22 10/12/24 Lactobacillus rhamnosus GG 10 1 cap PO DAILY PRN unknown 11/20/22 10/12/24 billion cell capsule (Culturelle) acetaminophen 650 mg 650 mg PO Q8H PRN Pain 11/20/22 10/12/24 tablet,extended release (Tylenol 8 Hour) bisacodyl 10 mg rectal suppository 10 mg DC DAILY PRN Constipation 11/20/22 10/12/24 cetirizine 10 mg capsule (Zyrtec) 10 mg PO QPM 11/20/22 10/12/24 cholecalciferol (vitamin D3) 25 25 mcg PO DAILY 11/20/22 10/12/24 mcg (1,000 unit) capsule (Vitamin D3) guaifenesin 1,200 mg tablet, 1,200 mg PO Q12H PRN Congestion 11/20/22 10/12/24 extended release 12 hr (Mucinex) magnesium hydroxide 400 mg/5 mL 400 mg PO DAILY PRN Constipation 11/20/22 10/12/24 oral suspension (Milk of Magnesia) gnelxolr-rxb-fbcie ac 400 1 tab PO DAILY 11/20/22 10/12/24 mcg-calcium carb 500 mg-vit K1 20 mcg tablet (Women's 50 Plus Multivitamin) sertraline 50 mg tablet (Zoloft) 50 mg PO QPM 11/20/22 10/12/24 sodium phosphates 19 gram-7 118 ml DC DAILY PRN Constipation 11/20/22 10/12/24 gram/118 mL enema (Fleet Enema) losartan 100 mg tablet 100 mg PO DAILY 10/12/24 10/12/24 pantoprazole 40 mg tablet,delayed 40 mg PO DAILY 10/12/24 10/12/24 release quetiapine 25 mg tablet 25 mg PO DAILY 10/12/24 10/12/24 quetiapine 50 mg tablet (Seroquel) 50 mg PO DAILY 10/12/24 10/12/24 Allergies Allergy/AdvReac Type Severity Reaction Status Date / Time Sulfa (Sulfonamide Allergy ADR-Gastrointestinal Verified 09/06/24 09:29 Antibiotics) Upset Review of Systems 2 General: Reports: ROS unobtainable due to mental status PFSH ED 2 PFSH: Medical History CAD (coronary artery disease) stents x2 Hypertension Dementia Social History Smoking and tobacco/nicotine status: never used tobacco/nicotine Alcohol intake: never Lives independently: No Housing: Assisted Living Facility Physical Exam 2 Const: COMMON NORMALS: negative for patient oriented x3 HENMT: COMMON NORMALS: normocephalic and atraumatic HEAD & SCALP: n ormocephalic and atraumatic Eye: COMMON NORMALS: Equal, round and reactive pupils present and EOMs intact bilaterally PUPIL: Yes Equal, round and reactive pupils present Neck/C-Spine: COMMON NORMALS: full ROM and supple Chest: COMMONS NORMALS: normal inspection of the chest Resp: COMMON NORMALS: No retractions, No use of accessory muscles and clear to auscultation bilaterally AUSCULTATION: clear to auscultation bilaterally and rales Cardio: COMMON NORMALS: regular rhythm and No murmurs present (Cardio) R ATE: tachycardic RHYTHM: regular rhythm GI: COMMON NORMALS: Normal to inspection, nondistended, normoactive bowel sounds present, Soft to palpation, non-tender and no masses PALPATION: Yes Soft to palpation Extremity: COMMON NORMALS: normal to inspection and full ROM Neuro: COMMON NORMALS: moves all extremities and no focal motor deficits; negative for patient oriented x3 Psych: COMMON NORMALS: Normal thought process present and cooperative; negative for mental status grossly normal THOUGHT PROCESS: Normal thought process present Skin: COMMON NORMALS: no rashes or lesions noted and no wounds GENERAL SKIN EXAM: no rashes or lesions noted Course 2 Vital Signs: Vital signs: Vital Signs Temperature 99.9 F H 10/12/24 14:57 Pulse Rate 86 10/12/24 17:28 Respiratory Rate 20 H 10/12/24 17:28 Blood Pressure 161/89 10/12/24 17:28 Pulse Oximetry 92 10/12/24 17:28 Oxygen Delivery Me thod Nasal Cannula 10/12/24 17:28 Oxygen Flow Rate 2 10/12/24 17:28 MDM - Fever Medical Decision Making Patient presents here with fever and some confusion from halfway she is also hypoxic here is found to have a pneumonia on her chest x-ray she is requiring 2 L of oxygen I spoke to hospitalist will admit at this time. Medical Records I reviewed the patient's medical records. Lab Data I reviewed the patient's lab results. 10/12/24 15:47 10/12/24 15:47 Radiology Impressions Chest X-Ray 10/12/24 15:08 IMPRESSION: 1. Patchy right lung base consolidation. Suspicious for pneumonia. 2. Subtle bilateral perihilar streakiness and bronchial wall thickening. Suspicious for bronchitis. Head CT 10/12/24 16:46 IMPRESSION: No acute intracranial findings. Laboratory Results WBC 9.88 10^3/uL (3.29-11.43) 10/12/24 15:47 RBC 4.32 10^6/uL (3.85-5.65) 10/12/24 15:47 Hgb 13.30 g/dL (11.27-16.99) 10/12/24 15:47 Hct 41.8 % (36-47) 10/12/24 15:47 MCV 96.8 fl (85-98) 10/12/24 15:47 MCH 30.8 pg (27-33) 10/12/24 15:47 MCHC 31.8 g/dL (30-55) 10/12/24 15:47 RDW 13.0 % (12.1-15.1) 10/12/24 15:47 Plt Count 147 10^3/cmm (157-399) L 10/12/24 15:47 MPV 9.2 fL (7.4-10.4) 10/12/24 15:47 Neut % (Auto) 85.7 % 10/12/24 15:47 Lymph % (Auto) 4.1 % 10/12/24 15:47 [place] % (Auto) 9.2 % 10/12/24 15:47 Eos % (Auto) 0.0 % 10/12/24 15:47 Baso % (Auto) 0.2 % 10/12/24 15:47 Neut # (Auto) 8.46 10^3/uL (1.8-7.7) H 10/12/24 15:47 Lymph # (Auto) 0.4 10^3/uL (0.8-4.8) L 10/12/24 15:47 [place] # (Auto) 0.9 10^3/uL (0.2-0.9) 10/12/24 15:47 Eos # (Auto) 0.0 10^3/uL (0.0-0.8) 10/12/24 15:47 Baso # (Auto) 0.0 10^3/uL (0.0-0.1) 10/12/24 15:47 Nucleated RBC % (auto) 0 % 10/12/24 15:47 Nucleated RBCs # 0.0 /100WBC 10/12/24 15:47 Sodium 138 mmol/L (136-145) 10/12/24 15:47 Potassium 3.8 mmol/L (3.5-5.1) 10/12/24 15:47 Chloride 102 mmol/L (98-107) 10/12/24 15:47 Carbon Dioxide 22 mmol/L (22-29) 10/12/24 15:47 Anion Gap 17.8 (5-19) 10/12/24 15:47 BUN 21 mg/dL (8-23) 10/12/24 15:47 Creatinine 1.0 mg/dL (0.5-0.9) H 10/12/24 15:47 GFR Calculation Not Reportable 10/12/24 15:47 Glucose 160 mg/dL (65-115) H 10/12/24 15:47 Calculated Osmolality 292 mOsm/kg (285-295) 10/12/24 15:47 Lactic Acid 1.3 mmol/L (0.5-2.2) 10/12/24 15:47 Calcium 9.5 mg/dL (8.5-10.5) 10/12/24 15:47 Total Bilirubin 1.0 mg/dL (0.15-1.2) 10/12/24 15:47 AST 29 U/L (0-32) 10/12/24 15:47 ALT 19 U/L (0-33) 10/12/24 15:47 Alkaline Phosphatase 82 U/L (35-105) 10/12/24 15:47 Total Protein 7.0 g/dL (6.6-8.7) 10/12/24 15:47 Albumin 4.3 g/dL (3.5-5.2) 10/12/24 15:47 Globulin 2.7 g/dL (1.3-4.6) 10/12/24 15:47 Urine Color Yellow (Yellow) 10/12/24 16:46 Urine Appearance Clear (CLEAR) 10/12/24 16:46 Urine pH 7.0 (5-7) 10/12/24 16:46 Ur Specific [place] 1.014 (1.005-1.030) 10/12/24 16:46 Urine Protein 2+ (Negative) A 10/12/24 16:46 Urine Glucose (UA) Trace (Normal) H 10/12/24 16:46 Urine Ketones Negative (Negative) 10/12/24 16:46 Urine Blood Trace (Negative) A 10/12/24 16:46 Urine Nitrate Negative (Negative) 10/12/24 16:46 Urine Bilirubin Negative (Negative) 10/12/24 16:46 Urine Urobilinogen 0.2 mg/dL (Negative) 10/12/24 16:46 Ur Leukocyte Esterase Negative (Negative) 10/12/24 16:46 Urine RBC 6-10 /hpf (0-2) 10/12/24 16:46 Urine WBC 6-10 /hpf (0-5) 10/12/24 16:46 Ur Squamous Epith Cells 0-5 /hpf (0-5) 10/12/24 16:46 Amorphous Sediment Not Reportable 10/12/24 16:46 Urine Bacteria Trace /hpf (NONE) 10/12/24 16:46 Hyaline Casts 0-4 /lpf H 10/12/24 16:46 Influenza Type A Ag negative (Negative) 10/12/24 15:52 Influenza Type B Ag negative (Negative) 10/12/24 15:52 SARS-CoV-2 Ag (Rapid) negative (Negative) 10/12/24 15:52 All radiology interpretation(s) finalized by discharge EKG Data EKG 1: I personally reviewed and interpreted this EKG as follows: EKG interpretation date: 10/12/24 EKG interpretation time: 15:06 Interpretation: sinus tach hr [address] elevation qrs 89 qtc 398 Discharge Plan Discharge Patient Disposition: Admitted As Inpatient Clinical Impression: Pneumonia, Hypoxia Condition: Stable Prescriptions: No Action rosuvastatin [Crestor] 10 mg tablet 10 mg PO BEDTIME aspirin [Adult Aspirin Regimen] 81 mg tablet,delayed release (DR/EC) 81 mg PO QPM vitamin B complex Capsule 1 cap PO DAILY [id number] 312 500 mg-15 mcg- 1,000 mcg-16 mg capsule 1 cap PO DAILY quetiapine 25 mg Tablet 25 mg PO DAILY Rx Instructions: take 1 tablet by mouth with 50 mg dose to equal 75 mg pantoprazole 40 mg Tablet,Delayed Release (Dr/Ec) 40 mg PO DAILY losartan 100 mg Tablet 100 mg PO DAILY quetiapine [Seroquel] 50 mg Tablet 50 mg PO DAILY Rx Instructions: take 1 tablet by mouth with 25 mg to equal 75mg acetaminophen [Tylenol 8 Hour] 650 mg Tablet Extended Release 650 mg PO Q8H PRN (Reason: Pain) magnesium hydroxide [Milk of Magnesia] 400 mg/5 mL Suspension 400 mg PO DAILY PRN (Reason: Constipation) bisacodyl 10 mg Suppository 10 mg DC DAILY PRN (Reason: Constipation) Fleet Enema 19-7 gram/118 mL Enema 118 ml DC DAILY PRN (Reason: Constipation) Culturelle 10 billion cell Capsule 1 cap PO DAILY PRN (Reason: unknown) sertraline [Zoloft] 50 mg Tablet 50 mg PO QPM cholecalciferol (vitamin D3) [Vitamin D3] 25 mcg (1,000 unit) Capsule 25 mcg PO DAILY guaifenesin [Mucinex] 1,200 mg Tablet Extended Release 12hr 1,200 mg PO Q12H PRN (Reason: Congestion) Zyrtec 10 mg Capsule 10 mg PO QPM Women's 50 Plus Multivitamin 400 mcg-500 mg calcium-20 mcg Tablet 1 tab PO DAILY Referrals: Jorden Melgoza DO [Primary Care Provider] - Coding Level of Care Code ED Family Dentist for Frankig Jos
[2024-10-12] MEDS: acetaminophen 500 mg Tablet 1000 MG PO (15:47)
[2024-10-12 16:02] LABS: Basophils % 0.2 %; Hematocrit 41.8 % (36-47); Lymphocytes # 0.4 10^3/uL (0.8-4.8); Lymphocytes % 4.1 %; Mean Corpuscular HGB Conc 31.8 g/dL (30-55); Mean Corpuscular Hemoglobin 30.8 pg (27-33); Mean Corpuscular Volume 96.8 fl (85-98); Mean Platelet Volume 9.2 fL (7.4-10.4); Monocytes # 0.9 10^3/uL (0.2-0.9); Monocytes % 9.2 %; Neutrophils # 8.46 10^3/uL (1.8-7.7); Neutrophils % 85.7 %; Nucleated Red Blood Cells % 0 %; Platelet Count 147 10^3/cmm (157-399); Red Blood Count 4.32 10^6/uL (3.85-5.65); White Blood Count 9.88 10^3/uL (3.29-11.43)
[2024-10-12 16:18] LABS: Influenza A by IFA negative (Negative); Influenza B by IFA negative (Negative)
[2024-10-12 16:19] LABS: SARS Covid-2 Antigen negative (Negative)
[2024-10-12 16:19] LABS: Alanine Aminotransferase 19 U/L (0-33); Albumin Level 4.3 g/dL (3.5-5.2); Alkaline Phosphatase 82 U/L (35-105); Anion Gap 17.8 (5-19); Aspartate Amino Transferase 29 U/L (0-32); Blood Urea Nitrogen 21 mg/dL (8-23); Calcium 9.5 mg/dL (8.5-10.5); Carbon Dioxide 22 mmol/L (22-29); Chloride 102 mmol/L (98-107); Creatinine Clr Calc Pharmacy 37.8357; Globulin 2.7 g/dL (1.3-4.6); Glucose 160 mg/dL (65-115); Osmolality Calculated 292 mOsm/kg (285-295); Potassium 3.8 mmol/L (3.5-5.1); Sodium 138 mmol/L (136-145)
[2024-10-12 16:20] LABS: Lactic Sepsis W/Reflex 1.3 mmol/L (0.5-2.2)
--- NOTE | 2024-10-12 16:46 | CTR_ITS ---
PROCEDURE INFORMATION: Exam: CT Head Without Contrast Exam date and time: 10/12/2024 5:03 PM Age: 89 years old Clinical indication: Altered mental status/memory loss; Additional info: AMS TECHNIQUE: Imaging protocol: Computed tomography of the head without contrast. Radiation optimization: All CT scans at this facility use at least one of these dose optimization techniques: automated exposure control; mA and/or kV adjustment per patient size (includes targeted exams where dose is matched to clinical indication); or iterative reconstruction. COMPARISON: CT head wo con* [id number] 11/20/2022 7:28 PM RADIATION DOSE METRICS: Total DLP (mGy-cm): 1186.58 FINDINGS: Brain: No intracranial hemorrhage. There is global parenchymal volume loss. Periventricular white matter hypoattenuation is nonspecific but most likely due to small vessel disease. No evidence of acute territorial infarct or cerebral edema. No mass effect or midline shift. Cerebral ventricles: Prominent ventricles likely secondary to volume loss. Paranasal sinuses: Mucous retention cyst right maxillary antrum. Mastoid air cells: Previous bilateral mastoidectomies. Bones: Unremarkable. No acute fracture. Soft tissues: Unremarkable. CT/CT head wo con* [id number] IMPRESSION: No acute intracranial findings.
[2024-10-12] MEDS: cefTRIAXone 1,000 mg SDV 1000 MG IVP (16:48)
[2024-10-12] MEDS: AZITHROMYCIN ADD-Vantage 500 MG in 0.9% NaCl ADD-Vantage 250 ML 250 MG IV (16:48)
[2024-10-12] MEDS: LORazepam 2 mg/mL INJ 1 mL 0.5 MG IVP (16:48)
--- NOTE | 2024-10-12 16:48 | PC.NURSE ---
this nurse assumed care approx @[id number]
[2024-10-12] MEDS: labetalol 5 mg/mL SDV 20mL 10 MG IVP (16:54)
[2024-10-12 17:16] LABS: Bilirubin Urine Negative (Negative); Blood Urine Trace (Negative); Glucose Urine UA Trace (Normal); Ketones Urine Negative (Negative); Leukocyte Esterase Urine Negative (Negative); Nitrate Urine Negative (Negative); Protein Urine 2+ (Negative); Specific Gravity, Urine 1.014 (1.005-1.030); Urine Appearance Clear (CLEAR); Urine Color Yellow (Yellow); Urobilinogen Urine 0.2 mg/dL (Negative)
[2024-10-12 17:22] LABS: Add Urine Microscopic? YES; Bacteria Urine Trace /hpf; Hyaline Casts Urine 0-4 /lpf; Squamous Epithelial Cell Urine 0-5 /hpf (0-5)
--- NOTE | 2024-10-12 18:16 | PC.NURSE ---
PT CAN CURRENTLY TELL YOU HER NAME AND AND DOES KNOW SHE IS AT THE HOSPITAL. TRIED TO GET PT UP TO BEDSIDE AND SHE SEEMS INCREASINGLY CONFUSED. PT WAS HAVING A HARD TIME FOLLOWING DIRECTION TO AMBULATE AND WAS HAVING A HARD TIME GETTING TO THE BEDSIDE.
--- NOTE | 2024-10-12 18:27 | PM.HP ---
Providers/Chief Complaint Admitting Physician: Anne Ryan MD Primary Care Provider: Jorden Melgoza DO Chief Complaint: fever, hypertension History of Present Illness Nguyen Valencia is a 89 year old female with a history of known dementia, currently at assisted living [facility]. She was brought to the hospital today reportedly with a history of fever and high blood pressure. Unable to reach anyone at [facility] at this time. Her daughter's phone goes to [employer]. Patient is unable to contribute to her history in any significant way. Reportedly patient came in because she has been feeling poorly and was noted to have a fever. There blood pressures recorded to be 200/100. Upon ER arrival blood pressure was 220/110 for which she received labetalol 10 mg IV. At the time of this assessment patient's blood pressure is 151/72 mmHg. She has a Tmax of 99.9 Fahrenheit. She is only able to tell me her name but states that she feels fine otherwise. She appears to be extremely hard of hearing. She denies any pain at any site currently. Review of Systems General: Reports: ROS unobtainable due to medical condition and ROS unobtainable due to mental status Medications/Allergies Home Medications Medication Instructions Recorded Confirmed Last Taken Type aspirin 81 mg tablet,delayed 81 mg PO QPM 10/12/22 10/12/24 11/19/22 History release (Adult Aspirin Regimen) rosuvastatin 10 mg tablet (Crestor) 10 mg PO BEDTIME 10/12/22 10/12/24 11/19/22 History vit C 500 mg-D3 15 mcg-folic 1,000 1 cap PO DAILY 10/12/22 10/12/24 11/20/22 History mcg-zinc 16 ur-ldpecs-sida capsule vitamin B complex 1 cap PO DAILY 10/12/22 10/12/24 11/20/22 History Lactobacillus rhamnosus GG 10 1 cap PO DAILY PRN unknown 11/20/22 10/12/24 Unknown History billion cell capsule (Culturelle) acetaminophen 650 mg 650 mg PO Q8H PRN Pain 11/20/22 10/12/24 Unknown History tablet,extended release (Tylenol 8 Hour) bisacodyl 10 mg rectal suppository 10 mg NC DAILY PRN Constipation 11/20/22 10/12/24 Unknown History cetirizine 10 mg capsule (Zyrtec) 10 mg PO QPM 11/20/22 10/12/24 11/19/22 History cholecalciferol (vitamin D3) 25 25 mcg PO DAILY 11/20/22 10/12/24 11/20/22 History mcg (1,000 unit) capsule (Vitamin D3) guaifenesin 1,200 mg tablet, 1,200 mg PO Q12H PRN Congestion 11/20/22 10/12/24 Unknown History extended release 12 hr (Mucinex) magnesium hydroxide 400 mg/5 mL 400 mg PO DAILY PRN Constipation 11/20/22 10/12/24 Unknown History oral suspension (Milk of Magnesia) tjskqulk-xld-clnox ac 400 1 tab PO DAILY 11/20/22 10/12/24 11/20/22 History mcg-calcium carb 500 mg-vit K1 20 mcg tablet (Women's 50 Plus Multivitamin) sertraline 50 mg tablet (Zoloft) 50 mg PO QPM 11/20/22 10/12/24 11/19/22 History sodium phosphates 19 gram-7 118 ml NC DAILY PRN Constipation 11/20/22 10/12/24 Unknown History gram/118 mL enema (Fleet Enema) losartan 100 mg tablet 100 mg PO DAILY 10/12/24 10/12/24 Unknown History pantoprazole 40 mg tablet,delayed 40 mg PO DAILY 10/12/24 10/12/24 Unknown History release quetiapine 25 mg tablet 25 mg PO DAILY 10/12/24 10/12/24 Unknown History quetiapine 50 mg tablet (Seroquel) 50 mg PO DAILY 10/12/24 10/12/24 Unknown History Allergies Allergy/AdvReac Type Severity Reaction Status Date / Time Sulfa (Sulfonamide Allergy ADR-Gastrointestinal Verified 09/06/24 09:29 Antibiotics) Upset PFSH Acute PFSH: Medical History CAD (coronary artery disease) stents x2 Hypertension Dementia Social History Smoking and tobacco/nicotine status: never used tobacco/nicotine Alcohol intake: never Lives independently: No Housing: Assisted Living Facility Vitals/I&O/Wt Last Vital Signs Temp 99.9 F H 10/12/24 14:57 Pulse 86 10/12/24 17:28 Resp 84 H 10/12/24 18:04 BP 151/72 10/12/24 18:04 Pulse Ox 95 10/12/24 18:04 O2 Del Method Room Air 10/12/24 18:04 O2 Flow Rate 2 10/12/24 17:28 Weight last 48 hrs Weight 72.575 kg Physical Exam Narrative: General: No acute distress, AO x1 HEENT: PERRLA, pupils bilaterally equal and reactive, pallors not present Chest: Normal vesicular breath sounds, no added sounds, equal good air entry bilaterally CVS: S1-S2 regular, no murmurs, no tachycardia, no gallops, no rubs Abdomen: Soft, appears to be mildly distended ,no organomegaly, bowel sounds present Neuro: No focal deficits, appears to be moving all extremities while laying in bed. Data 10/12/24 15:47 10/12/24 15:47 Micro: Microbiology 10/12/24 15:41 Blood Culture - Preliminary Blood SPECIMEN COLLECTED 10/12/24 15:41 Blood Culture - Preliminary Blood SPECIMEN COLLECTED Other data: Radiology Impressions Chest X-Ray 10/12/24 15:08 IMPRESSION: 1. Patchy right lung base consolidation. Suspicious for pneumonia. 2. Subtle bilateral perihilar streakiness and bronchial wall thickening. Suspicious for bronchitis. Head CT 10/12/24 16:46 IMPRESSION: No acute intracranial findings. Laboratory Results WBC 9.88 10^3/uL (3.29-11.43) 10/12/24 15:47 RBC 4.32 10^6/uL (3.85-5.65) 10/12/24 15:47 Hgb 13.30 g/dL (11.27-16.99) 10/12/24 15:47 Hct 41.8 % (36-47) 10/12/24 15:47 MCV 96.8 fl (85-98) 10/12/24 15:47 MCH 30.8 pg (27-33) 10/12/24 15:47 MCHC 31.8 g/dL (30-55) 10/12/24 15:47 RDW 13.0 % (12.1-15.1) 10/12/24 15:47 Plt Count 147 10^3/cmm (157-399) L 10/12/24 15:47 MPV 9.2 fL (7.4-10.4) 10/12/24 15:47 Neut % (Auto) 85.7 % 10/12/24 15:47 Lymph % (Auto) 4.1 % 10/12/24 15:47 [place] % (Auto) 9.2 % 10/12/24 15:47 Eos % (Auto) 0.0 % 10/12/24 15:47 Baso % (Auto) 0.2 % 10/12/24 15:47 Neut # (Auto) 8.46 10^3/uL (1.8-7.7) H 10/12/24 15:47 Lymph # (Auto) 0.4 10^3/uL (0.8-4.8) L 10/12/24 15:47 [place] # (Auto) 0.9 10^3/uL (0.2-0.9) 10/12/24 15:47 Eos # (Auto) 0.0 10^3/uL (0.0-0.8) 10/12/24 15:47 Baso # (Auto) 0.0 10^3/uL (0.0-0.1) 10/12/24 15:47 Nucleated RBC % (auto) 0 % 10/12/24 15:47 Nucleated RBCs # 0.0 /100WBC 10/12/24 15:47 Sodium 138 mmol/L (136-145) 10/12/24 15:47 Potassium 3.8 mmol/L (3.5-5.1) 10/12/24 15:47 Chloride 102 mmol/L (98-107) 10/12/24 15:47 Carbon Dioxide 22 mmol/L (22-29) 10/12/24 15:47 Anion Gap 17.8 (5-19) 10/12/24 15:47 BUN 21 mg/dL (8-23) 10/12/24 15:47 Creatinine 1.0 mg/dL (0.5-0.9) H 10/12/24 15:47 GFR Calculation Not Reportable 10/12/24 15:47 Glucose 160 mg/dL (65-115) H 10/12/24 15:47 Calculated Osmolality 292 mOsm/kg (285-295) 10/12/24 15:47 Lactic Acid 1.3 mmol/L (0.5-2.2) 10/12/24 15:47 Calcium 9.5 mg/dL (8.5-10.5) 10/12/24 15:47 Total Bilirubin 1.0 mg/dL (0.15-1.2) 10/12/24 15:47 AST 29 U/L (0-32) 10/12/24 15:47 ALT 19 U/L (0-33) 10/12/24 15:47 Alkaline Phosphatase 82 U/L (35-105) 10/12/24 15:47 Total Protein 7.0 g/dL (6.6-8.7) 10/12/24 15:47 Albumin 4.3 g/dL (3.5-5.2) 10/12/24 15:47 Globulin 2.7 g/dL (1.3-4.6) 10/12/24 15:47 Urine Color Yellow (Yellow) 10/12/24 16:46 Urine Appearance Clear (CLEAR) 10/12/24 16:46 Urine pH 7.0 (5-7) 10/12/24 16:46 Ur Specific [place] 1.014 (1.005-1.030) 10/12/24 16:46 Urine Protein 2+ (Negative) A 10/12/24 16:46 Urine Glucose (UA) Trace (Normal) H 10/12/24 16:46 Urine Ketones Negative (Negative) 10/12/24 16:46 Urine Blood Trace (Negative) A 10/12/24 16:46 Urine Nitrate Negative (Negative) 10/12/24 16:46 Urine Bilirubin Negative (Negative) 10/12/24 16:46 Urine Urobilinogen 0.2 mg/dL (Negative) 10/12/24 16:46 Ur Leukocyte Esterase Negative (Negative) 10/12/24 16:46 Urine RBC 6-10 /hpf (0-2) 10/12/24 16:46 Urine WBC 6-10 /hpf (0-5) 10/12/24 16:46 Ur Squamous Epith Cells 0-5 /hpf (0-5) 10/12/24 16:46 Amorphous Sediment Not Reportable 10/12/24 16:46 Urine Bacteria Trace /hpf (NONE) 10/12/24 16:46 Hyaline Casts 0-4 /lpf H 10/12/24 16:46 Influenza Type A Ag negative (Negative) 10/12/24 15:52 Influenza Type B Ag negative (Negative) 10/12/24 15:52 SARS-CoV-2 Ag (Rapid) negative (Negative) 10/12/24 15:52 A&P Assessment and plan (1) Hypertension: Patient sent to the hospital today with chief complaints of fever and high blood pressure. She has been given labetalol 10 mg IV push in the emergency room. At the time of this assessment blood pressure is 151/72 mmHg. Heart rate is 86/min. EKG without any acute ST-T wave changes. She denies any current chest pain. CT of her head is without any acute abnormalities, no stroke identified Patient is not able to contribute significantly to her history. She does carry a history of dementia. In reviewing notes from admission in 2021 it appears patient was admitted at that time with acute encephalopathy and had exhibited some memory impairment. I am uncertain of her recent baseline. Calls were placed to Lonnie Pereira and to her daughter to obtain a good sense of her baseline mental status but both were unanswered. Continue home dose of losartan 100 mg p.o. daily Hydralazine 10 mg IV every 6 hours as needed. Based on requirements over next 24 hours will aim to optimize her oral antihypertensive regimen. (2) Pneumonia: right lower lobe consolidation Chest x-ray This may be the source of her fever. In reviewing her past x-rays from 2021 she did have some right lower lobe opacity even at that time. Uncertain if this had resolved and then now reappeared at this time. Start ceftriaxone 1 g IV every 24 hours, azithromycin 500 mg p.o. daily. Urine Legionella and bacterial antigens. Check respiratory panel. Sputum culture and Gram stain if patient able to expectorate. (3) Hypoxia: currently on 2lpm supplemental 02. Plan DVT ppx: lovenox 40 s/c DNR/DNI Attestations Medical Necessity Statement*: less than 2 midnight stay currently anticipated Coding Level of Care Code Acute Code for Chg Fwd Moderate MDM includes number and complexity of problems actively addressed during encounter, amount and/or complexity of data reviewed/ordered and described risk of complication, morbidity or mortality of management as documented Diagnoses Hypertension I10 Pneumonia J18.9 Hypoxia R09.02
[2024-10-12] MEDS: aspirin 81 mg EC Tablet PO (18:33)
[2024-10-12] MEDS: sertraline 50 mg Tablet PO (18:33)
[2024-10-12] MEDS: azithromycin 250 mg Tablet 500 MG PO (18:33)
--- NOTE | 2024-10-12 18:34 | PC.NURSE ---
This nurse took report from MARLIN Maria in ER at 1835.
[2024-10-12] MEDS: enoxaparin 40 mg/0.4 mL Syringe SUBCUT (22:24)
[2024-10-12] MEDS: atorvastatin 40 mg Tablet 20 MG PO (22:25)
[2024-10-13] VITALS (9 sets, daily range): BP systolic 148–206; BP diastolic 61–105; PULSE 67–98; RESP 14–18; TEMP 36.5–37.2; O2SAT 89–95
[2024-10-13 04:44] LABS: Basophils % 0.3 %; Eosinophils % 0.3 %; Hematocrit 39.2 % (36-47); Lymphocytes # 0.9 10^3/uL (0.8-4.8); Lymphocytes % 11.8 %; Mean Corpuscular HGB Conc 32.1 g/dL (30-55); Mean Corpuscular Hemoglobin 31.1 pg (27-33); Mean Corpuscular Volume 96.8 fl (85-98); Mean Platelet Volume 9.7 fL (7.4-10.4); Monocytes # 1.2 10^3/uL (0.2-0.9); Monocytes % 15.6 %; Neutrophils # 5.43 10^3/uL (1.8-7.7); Neutrophils % 71.3 %; Nucleated Red Blood Cells % 0 %; Platelet Count 122 10^3/cmm (157-399); Red Blood Count 4.05 10^6/uL (3.85-5.65); Red Cell Distribution Width 13.1 % (12.1-15.1); White Blood Count 7.61 10^3/uL (3.29-11.43)
[2024-10-13 05:10] LABS: Alanine Aminotransferase 19 U/L (0-33); Alkaline Phosphatase 73 U/L (35-105); Anion Gap 14.2 (5-19); Aspartate Amino Transferase 27 U/L (0-32); Blood Urea Nitrogen 23 mg/dL (8-23); Calcium 9.4 mg/dL (8.5-10.5); Carbon Dioxide 27 mmol/L (22-29); Chloride 107 mmol/L (98-107); Creatinine Clr Calc Pharmacy 42.0397; Globulin 2.1 g/dL (1.3-4.6); Glucose 117 mg/dL (65-115); Osmolality Calculated 303 mOsm/kg (285-295); Potassium 4.2 mmol/L (3.5-5.1); Sodium 144 mmol/L (136-145); Total Bilirubin 0.8 mg/dL (0.15-1.2); Total Protein 6.1 g/dL (6.6-8.7)
[2024-10-13 05:16] LABS: C Reactive Protein 92.9 mg/L (0.0-4.9)
[2024-10-13 08:04] LABS: Adenovirus Not Detected (NOT DETECT); Chlamydia Pneumoniae Not Detected (NOT DETECT); Coronavirus 229E,HKU1,NL63,OC4 Not Detected (NOT DETECT); Human Metapneumovirus Not Detected (NOT DETECT); Human Rhinovirus/Enterovirus Not Detected (NOT DETECT); Influenza A Not Detected (NOT DETECT); Influenza A H1 Not Detected (NOT DETECT); Influenza A H1-2009 Not Detected (NOT DETECT); Influenza A H3 Not Detected (NOT DETECT); Influenza B Not Detected (NOT DETECT); Mycoplasma Pneumoniae Not Detected (NOT DETECT); Parainfluenza Virus Type 1 Not Detected (NOT DETECT); Parainfluenza Virus Type 2 Not Detected (NOT DETECT); Parainfluenza Virus Type 3 Not Detected (NOT DETECT); Parainfluenza Virus Type 4 Not Detected (NOT DETECT); Respiratory Syncytial Virus A Not Detected (NOT DETECT); Respiratory Syncytial Virus B Not Detected (NOT DETECT); SARS-COV-2 Not Detected (NOT DETECT)
[2024-10-13] MEDS: pantoprazole DR 40 mg Tablet PO (08:17)
[2024-10-13] MEDS: losartan 50 mg Tablet 100 MG PO (08:17)
[2024-10-13] MEDS: quetiapine 25 mg Tablet PO (08:17)
--- NOTE | 2024-10-13 13:46 | P.PN_ITS ---
Subjective 2 Subjective: Patient was much more alert awake and oriented today. She is walking in the room independently, trying to make the beds. She does not recall events leading up to admission. O2 sat on room air was at 89%. Blood pressure is elevated, still ranging 1 70-1 88 systolic. Medications: Reviewed: Yes Vitals/I&O/Wt Last Vital Signs Temp 97.7 F 10/13/24 08:00 Pulse 74 10/13/24 10:24 Resp 16 10/13/24 10:24 BP 179/72 10/13/24 08:17 Pulse Ox 92 10/13/24 13:31 O2 Del Method Room Air 10/13/24 10:24 O2 Flow Rate 2 10/13/24 08:00 10/12/24 10/13/24 10/13/24 22:59 06:59 14:59 Intake Total 280 / 280 240 / 520 354 / 354 Output Total 400 / 400 Balance 280 / 280 -160 / 120 354 / 354 Weight last 48 hrs Weight 68.447 kg Weight 72.575 kg Physical Exam 2 Narrative: General: No acute distress, AO x3 HEENT: PERRLA, pupils bilaterally equal and reactive, pallors not present Chest: Normal vesicular breath sounds, no added sounds, equal good air entry bilaterally CVS: S1-S2 regular, no murmurs, no tachycardia, no gallops, no rubs Abdomen: Soft, appears to be mildly distended ,no organomegaly, bowel sounds present Neuro: well appearing, walking independently Data 10/13/24 04:09 10/13/24 04:09 Micro: Microbiology 10/13/24 02:45 Legionella Urinary Antigen - Final Urine,Voided Bacterial Antigens - Final 10/12/24 15:41 Blood Culture - Preliminary Blood SPECIMEN COLLECTED 10/12/24 15:41 Blood Culture - Preliminary Blood SPECIMEN COLLECTED A&P Assessment and plan (1) Hypertension: Patient sent to the hospital today with chief complaints of fever and high blood pressure. She has been given labetalol 10 mg IV push in the emergency room. At the time of this assessment blood pressure is 151/72 mmHg. Heart rate is 86/min. EKG without any acute ST-T wave changes. She denies any current chest pain. CT of her head is without any acute abnormalities, no stroke identified Patient is not able to contribute significantly to her history. She does carry a history of dementia. In reviewing notes from admission in 2021 it appears patient was admitted at that time with acute encephalopathy and had exhibited some memory impairment. I am uncertain of her recent baseline. Calls were placed to Lonnie Pereira and to her daughter to obtain a good sense of her baseline mental status but both were unanswered. Continue home dose of losartan 100 mg p.o. daily Hydralazine 10 mg IV every 6 hours as needed. Based on requirements over next 24 hours will aim to optimize her oral antihypertensive regimen. (2) Pneumonia: right lower lobe consolidation Chest x-ray This may be the source of her fever. In reviewing her past x-rays from 2021 she did have some right lower lobe opacity even at that time. Uncertain if this had resolved and then now reappeared at this time. Start ceftriaxone 1 g IV every 24 hours, azithromycin 500 mg p.o. daily. Urine Legionella and bacterial antigens. Check respiratory panel. Sputum culture and Gram stain if patient able to expectorate. (3) Hypoxia: currently on 2lpm supplemental 02. Plan DVT ppx: lovenox 40 s/c DNR/DNI October 13, 2024 Patient looks clinically much better today. She is walking independently in the room, trying to make her bed. Able to have a full conversation. O2 sat is 89% on room air. We will continue antibiotics including ceftriaxone and azithromycin for right lower lobe pneumonia. Systolic blood pressure is still continuing to be between 170 to 180 mmHg in spite of having taken her usual dose of losartan. Her daughter reports that she has been noted to have elevated blood pressure on multiple podiatry visits in the past as well. Will add amlodipine 10 mg p.o. daily and assess for blood pressure response. Anticipate discharge in the upcoming 24 hours if patient's blood pressure is well- controlled and continues to do well. Attestations 2 Medical Necessity Statement*: Blood pressure management ongoing, IV antibiotics for pneumonia Coding Level of Care Code Acute Code for Chg Fwd Moderate MDM includes number and complexity of problems actively addressed during encounter, amount and/or complexity of data reviewed/ordered and described risk of complication, morbidity or mortality of management as documented Diagnoses Hypertension I10 Pneumonia J18.9 Hypoxia R09.02
[2024-10-13] MEDS: amlodipine 10 mg Tablet PO (13:51)
[2024-10-13] MEDS: sertraline 50 mg Tablet PO (16:48)
[2024-10-13] MEDS: aspirin 81 mg EC Tablet PO (16:49)
[2024-10-13] MEDS: cefTRIAXone 1,000 mg SDV 1000 MG IVP (16:50)
[2024-10-13] MEDS: atorvastatin 40 mg Tablet 20 MG PO (21:15)
[2024-10-13] MEDS: enoxaparin 40 mg/0.4 mL Syringe SUBCUT (21:15)
[2024-10-14] VITALS (7 sets, daily range): BP systolic 122–181; BP diastolic 52–89; PULSE 72–90; RESP 16–18; TEMP 36.4–37; O2SAT 90–95
[2024-10-14] MEDS: quetiapine 25 mg Tablet PO (09:31)
[2024-10-14] MEDS: amlodipine 10 mg Tablet PO (09:31)
[2024-10-14] MEDS: pantoprazole DR 40 mg Tablet PO (09:31)
[2024-10-14] MEDS: losartan 50 mg Tablet 100 MG PO (09:32)
[2024-10-14 12:08] LABS: Glucose Point of Care 107 mg/dL (70-110)
--- NOTE | 2024-10-14 13:21 | P.DS_ITS ---
Discharge Providers Date of Admission: 10/12/24 18:28 Date of Discharge: October 14, 2024 Attending Provider at Admission: Anne Ryan MD Attending Provider at Discharge: Anne Ryan MD Primary Care Provider: Jorden Melgoza DO Diagnoses at Discharge Discharge Diagnosis (1) Hypertension: Status: Acute (2) Pneumonia: Status: Acute (3) Hypoxia: Status: Acute Reason for Visit Reason for Visit: fever, hypertension Hospital Course Hospital Course 89 year old was brought in from assisted living with c/o elevated BP systolic BP > 200 and new hypoxia. She was found to have a RLL pneumonia for which she received iv abx treatment with ceftriaxone 1g iv every 24 hrs. She has been transitioned to oral augmentin 875mg BID at the time of discharge. SHe is imporving from a pneumonia standpoint , now on room air. She was lethargic upon arrival, now much more alert and awake, back at baseline mentation. For her uncontrolled BP, she was continued on losartan 100mg po daily. Amlodipine 10mg daily was additionally added, as was hydralazine 10mg TID. She is instrcuted to follow up with her PCP in the next 4-7 days for repeat BP check and assess for any further adjustments as appropriate in her antihypertensive regimen. Physical Exam Narrative: General: No acute distress, AO x2-3 HEENT: PERRLA, pupils bilaterally equal and reactive, pallors not present Chest: Normal vesicular breath sounds, no added sounds, equal good air entry bilaterally CVS: S1-S2 regular, no murmurs, no tachycardia, no gallops, no rubs Abdomen: Soft, nontender, no organomegaly, bowel sounds present Neuro: No focal deficits, no facial deformity, AO x3, power 5/5 in all limbs Discharge Data Studies Completed and Pending Completed Studies During Hospitalization Category Date Time Status CT head wo con* [id number] Stat Cat Scan 10/12/24 16:46 Completed XR chest 1V portable [id number] Stat Exams 10/12/24 15:08 Completed Pending at discharge Category Date Time Status Blood Culture Stat Lab 10/12/24 15:41 Results Radiology Impressions Chest X-Ray 10/12/24 15:08 IMPRESSION: 1. Patchy right lung base consolidation. Suspicious for pneumonia. 2. Subtle bilateral perihilar streakiness and bronchial wall thickening. Suspicious for bronchitis. Head CT 10/12/24 16:46 IMPRESSION: No acute intracranial findings. Laboratory Results WBC 7.61 10^3/uL (3.29-11.43) 10/13/24 04:09 RBC 4.05 10^6/uL (3.85-5.65) 10/13/24 04:09 Hgb 12.60 g/dL (11.27-16.99) 10/13/24 04:09 Hct 39.2 % (36-47) 10/13/24 04:09 MCV 96.8 fl (85-98) 10/13/24 04:09 MCH 31.1 pg (27-33) 10/13/24 04:09 MCHC 32.1 g/dL (30-55) 10/13/24 04:09 RDW 13.1 % (12.1-15.1) 10/13/24 04:09 Plt Count 122 10^3/cmm (157-399) L 10/13/24 04:09 MPV 9.7 fL (7.4-10.4) 10/13/24 04:09 Neut % (Auto) 71.3 % 10/13/24 04:09 Lymph % (Auto) 11.8 % 10/13/24 04:09 [place] % (Auto) 15.6 % 10/13/24 04:09 Eos % (Auto) 0.3 % 10/13/24 04:09 Baso % (Auto) 0.3 % 10/13/24 04:09 Neut # (Auto) 5.43 10^3/uL (1.8-7.7) 10/13/24 04:09 Lymph # (Auto) 0.9 10^3/uL (0.8-4.8) 10/13/24 04:09 [place] # (Auto) 1.2 10^3/uL (0.2-0.9) H 10/13/24 04:09 Eos # (Auto) 0.0 10^3/uL (0.0-0.8) 10/13/24 04:09 Baso # (Auto) 0.0 10^3/uL (0.0-0.1) 10/13/24 04:09 Nucleated RBC % (auto) 0 % 10/13/24 04:09 Nucleated RBCs # 0.0 /100WBC 10/13/24 04:09 Sodium 144 mmol/L (136-145) 10/13/24 04:09 Potassium 4.2 mmol/L (3.5-5.1) 10/13/24 04:09 Chloride 107 mmol/L (98-107) 10/13/24 04:09 Carbon Dioxide 27 mmol/L (22-29) 10/13/24 04:09 Anion Gap 14.2 (5-19) 10/13/24 04:09 BUN 23 mg/dL (8-23) 10/13/24 04:09 Creatinine 0.9 mg/dL (0.5-0.9) 10/13/24 04:09 GFR Calculation Not Reportable 10/13/24 04:09 Glucose 117 mg/dL (65-115) H 10/13/24 04:09 POC Glucose 107 mg/dL (70-110) 10/14/24 11:49 Calculated Osmolality 303 mOsm/kg (285-295) H 10/13/24 04:09 Lactic Acid 1.3 mmol/L (0.5-2.2) 10/12/24 15:47 Calcium 9.4 mg/dL (8.5-10.5) 10/13/24 04:09 Total Bilirubin 0.8 mg/dL (0.15-1.2) 10/13/24 04:09 AST 27 U/L (0-32) 10/13/24 04:09 ALT 19 U/L (0-33) 10/13/24 04:09 Alkaline Phosphatase 73 U/L (35-105) 10/13/24 04:09 C-Reactive Protein 92.9 mg/L (0.0-4.9) H 10/13/24 04:09 Total Protein 6.1 g/dL (6.6-8.7) L 10/13/24 04:09 Albumin 4.0 g/dL (3.5-5.2) 10/13/24 04:09 Globulin 2.1 g/dL (1.3-4.6) 10/13/24 04:09 Urine Color Yellow (Yellow) 10/12/24 16:46 Urine Appearance Clear (CLEAR) 10/12/24 16:46 Urine pH 7.0 (5-7) 10/12/24 16:46 Ur Specific [place] 1.014 (1.005-1.030) 10/12/24 16:46 Urine Protein 2+ (Negative) A 10/12/24 16:46 Urine Glucose (UA) Trace (Normal) H 10/12/24 16:46 Urine Ketones Negative (Negative) 10/12/24 16:46 Urine Blood Trace (Negative) A 10/12/24 16:46 Urine Nitrate Negative (Negative) 10/12/24 16:46 Urine Bilirubin Negative (Negative) 10/12/24 16:46 Urine Urobilinogen 0.2 mg/dL (Negative) 10/12/24 16:46 Ur Leukocyte Esterase Negative (Negative) 10/12/24 16:46 Urine RBC 6-10 /hpf (0-2) 10/12/24 16:46 Urine WBC 6-10 /hpf (0-5) 10/12/24 16:46 Ur Squamous Epith Cells 0-5 /hpf (0-5) 10/12/24 16:46 Amorphous Sediment Not Reportable 10/12/24 16:46 Urine Bacteria Trace /hpf (NONE) 10/12/24 16:46 Hyaline Casts 0-4 /lpf H 10/12/24 16:46 Adenovirus (PCR) Not detected (NOT DETECT) 10/12/24 06:00 C. pneumoniae DNA (PCR) Not detected (NOT DETECT) 10/12/24 06:00 Coronavirus 229E (PCR) Not detected (NOT DETECT) 10/12/24 06:00 Human Metapneumovir PCR Not detected (NOT DETECT) 10/12/24 06:00 Influenza A (H1) PCR Not detected (NOT DETECT) 10/12/24 06:00 Influ A (H1/09) PCR Not detected (NOT DETECT) 10/12/24 06:00 Influenza A (H3) PCR Not detected (NOT DETECT) 10/12/24 06:00 Influenza Type A Ag negative (Negative) 10/12/24 15:52 Influenza Type A (PCR) Not detected (NOT DETECT) 10/12/24 06:00 Influenza Type B Ag negative (Negative) 10/12/24 15:52 Influenza Type B (PCR) Not detected (NOT DETECT) 10/12/24 06:00 M. pneumoniae (PCR) Not detected (NOT DETECT) 10/12/24 06:00 Parainfluenza 1 (PCR) Not detected (NOT DETECT) 10/12/24 06:00 Parainfluenza 2 (PCR) Not detected (NOT DETECT) 10/12/24 06:00 Parainfluenza 3 (PCR) Not detected (NOT DETECT) 10/12/24 06:00 Parainfluenza 4 (PCR) Not detected (NOT DETECT) 10/12/24 06:00 RSV Type A (PCR) Not detected (NOT DETECT) 10/12/24 06:00 RSV Type B (PCR) Not detected (NOT DETECT) 10/12/24 06:00 Entero/Rhino (PCR) Not detected (NOT DETECT) 10/12/24 06:00 SARS-CoV-2 (PCR) Not detected (NOT DETECT) 10/12/24 06:00 SARS-CoV-2 Ag (Rapid) negative (Negative) 10/12/24 15:52 Vitals Last Vital Signs Temp 98.0 F 10/14/24 07:28 Pulse 87 10/14/24 12:00 Resp 18 10/14/24 12:00 BP 181/52 10/14/24 09:32 Pulse Ox 92 10/14/24 12:00 O2 Del Method Room Air 10/14/24 08:12 O2 Flow Rate 2 10/13/24 08:00 Discharge Plan Discharge Patient Disposition: Home Condition: Stable Prescriptions: New hydralazine 10 mg tablet 10 mg PO TID 10 Days Qty: 30 0RF Rx Instructions: hold for systolic BP less than 130 amlodipine 10 mg Tablet 10 mg PO DAILY 30 Days Qty: 30 0RF amoxicillin-pot clavulanate 875-125 mg tablet 1 tab PO BID 5 Days Qty: 10 0RF Continued rosuvastatin [Crestor] 10 mg tablet 10 mg PO BEDTIME aspirin [Adult Aspirin Regimen] 81 mg tablet,delayed release (DR/EC) 81 mg PO QPM vitamin B complex Capsule 1 cap PO DAILY [id number] 500 mg-15 mcg- 1,000 mcg-16 mg capsule 1 cap PO DAILY quetiapine 25 mg Tablet 25 mg PO DAILY Rx Instructions: take 1 tablet by mouth with 50 mg dose to equal 75 mg pantoprazole 40 mg Tablet,Delayed Release (Dr/Ec) 40 mg PO DAILY losartan 100 mg Tablet 100 mg PO DAILY quetiapine [Seroquel] 50 mg Tablet 50 mg PO DAILY Rx Instructions: take 1 tablet by mouth with 25 mg to equal 75mg acetaminophen [Tylenol 8 Hour] 650 mg Tablet Extended Release 650 mg PO Q8H PRN (Reason: Pain) magnesium hydroxide [Milk of Magnesia] 400 mg/5 mL Suspension 400 mg PO DAILY PRN (Reason: Constipation) bisacodyl 10 mg Suppository 10 mg SC DAILY PRN (Reason: Constipation) Fleet Enema 19-7 gram/118 mL Enema 118 ml SC DAILY PRN (Reason: Constipation) Culturelle 10 billion cell Capsule 1 cap PO DAILY PRN (Reason: unknown) sertraline [Zoloft] 50 mg Tablet 50 mg PO QPM cholecalciferol (vitamin D3) [Vitamin D3] 25 mcg (1,000 unit) Capsule 25 mcg PO DAILY guaifenesin [Mucinex] 1,200 mg Tablet Extended Release 12hr 1,200 mg PO Q12H PRN (Reason: Congestion) Zyrtec 10 mg Capsule 10 mg PO QPM Women's 50 Plus Multivitamin 400 mcg-500 mg calcium-20 mcg Tablet 1 tab PO DAILY Discharge Orders: Discharge Order (Routine); Ordered 10/14/24 Ordered By: Anne Ryan Referrals: Jorden Melgoza DO [Primary Care Provider] - 4-7 days Discharge Diet: Usual diet Discharge Activity: Resume usual activity Patient Instructions: Opioid Safety Discharge Attestations Time Spent in Discharge Care*: greater than 30 min Quality Metrics Clinical Quality Measures [ No reported AMI, CVA or VTE this stay] Coding Level of Care Code Acute Code for [facility] Fwd Diagnoses Hypertension I10 Pneumonia J18.9 Hypoxia R09.02
== END 2024-10-14 16:04 | disposition home or self-care (01) ==
LOC: ER 17:44 → MEDSURG 18:28
PROVIDERS: Admitting Provider Student in an Organized Health Care Education/Training Program; Emergency Provider Emergency Medicine; PCP Internal Medicine; Visit Provider Student in an Organized Health Care Education/Training Program
DX: J18.9 Pneumonia, unspecified organism (principal); I10 Essential (primary) hypertension; R09.02 Hypoxemia; Z66 Do not resuscitate; I25.10 Atherosclerotic heart disease of native coronary artery without angina pectoris; Z95.5 Presence of coronary angioplasty implant and graft; F03.90 Unspecified dementia, unspecified severity, without behavioral disturbance, psychotic disturbance, mood disturbance, and anxiety
CPT/HCPCS: 36415; 36416; 70450; 71045; 80053; 81001; 82962; 83605; 85025; 86140; 86403; 87040; 87426; 87449; 87486; 87581; 87633; 87804; 93005; 94760; 96365; 96372; 96375; 96376; 99285; G0378; J0456; J0696; J1650; J2060; J3490; J7050; Q0144

== ENCOUNTER → 2024-11-30 11:32 | Outpatient (BNVA) | payer MEDICARE, SELFPAY | PROVIDERS: PCP Internal Medicine; Visit Provider Podiatrist Foot & Ankle Surgery | DX: M79.672 Pain in left foot (principal); L97.512 Non-pressure chronic ulcer of other part of right foot with fat layer exposed; M20.41 Other hammer toe(s) (acquired), right foot; M20.42 Other hammer toe(s) (acquired), left foot; I73.9 Peripheral vascular disease, unspecified; L60.3 Nail dystrophy; S90.32XA Contusion of left foot, initial encounter; X58.XXXA Exposure to other specified factors, initial encounter | CPT/HCPCS: 11042; 11721; 73630; 99213 ==

== ENCOUNTER 2025-01-12 09:45 | Outpatient (CLI) | payer MEDICARE, SELFPAY ==
--- NOTE | 2025-01-12 09:52 | USCV_ITS ---
Erik Nguyen Age: 89 Gender: F : 1935 Exam Date: 01/12/2025 10:27 Ordering Phys: Jorden Melgoza DO Technologist: Hosea Nova Exam Location: [facility] – [place] Indication: fluid retention BP: 181 / 83 HR: 71 Rhythm: Sinus Technical Quality: Adequate MEASUREMENTS (Male / Female) Normal Values 2D ECHO LV Diastolic Diameter PLAX 2.5 cm 4.2 - 5.9 / 3.9 - 5.3 cm IVS Diastolic Thickness 1.6 cm 0.6 - 1.0 / 0.6 - 0.9 cm IVS Systolic Thickness 1.8 cm LVPW Diastolic Thickness 1.9 cm 0.6 - 1.0 / 0.6 - 0.9 cm LVPW Systolic Thickness 2.1 cm LVOT Diameter 2.2 cm LV Ejection Fraction 2D Teich 77.5 % LV Ejection Fraction MOD 4C 71.4 % LV Ejection Fraction MOD 2C 68.6 % LV Ejection Fraction 2C AL 69.0 % LA Diameter 3.9 cm RA Systolic Volume 4C AL 36.0 ml RA Systolic Volume 4C MOD 33.9 ml LA Sys Volume AL 50.0 cm cubed LA Sys Volume Index AL 28.1 cm cubed/m squared Aorta at Sinotubular Diameter 2.4 cm IVC Diameter 1.6 cm M-MODE LA Ao Ratio MM 1.4 AV Cusp Separation MM 0.9 cm DOPPLER AV Peak Velocity 155.7 cm/s LVOT Peak Velocity 112.0 cm/s AV Area Cont Eq vti 2.7 cm squared AV Area Cont Eq pk 2.8 cm squared MV Peak Velocity 233.0 cm/s MV Area PHT 1.9 cm squared Mitral E to A Ratio 0.8 TV Peak Velocity 182.0 cm/s TR Peak Velocity 252.0 cm/s TR Peak Gradient 25.4 mmHg TR Mean Velocity 211.0 cm/s TR Mean Gradient 18.7 mmHg TR Velocity Time Integral 67.7 cm PV Peak Velocity 107.0 cm/s RV Ejection Time 0.3 s FINDINGS Left Ventricle Left ventricle is normal in size. LV systolic function is normal with EF of 60-65%. No regional wall motion abnormalities are seen. Grade 1 diastolic dysfunction. Right Ventricle Normal in size and function Right Atrium Normal in size Left Atrium Normal in size Mitral Valve Mitral valve is thickened and calcified. Moderate mitral stenosis with mitral valve area of 1.91 cm2 and mean gradient across mitral valve 9 mm Aortic Valve Aortic valve is thickened and calcified. No significant stenosis or regurgitation. Tricuspid Valve Mild tricuspid regurgitation. Pulmonary artery systolic pressure is normal. Pulmonic Valve Mild pulmonic regurgitation. Pericardium Normal Aorta Normal in size IVC Appears to be normal CONCLUSIONS LV systolic function is normal with EF of 60-65% Grade 1 diastolic dysfunction Moderate mitral stenosis with mitral valve area of 1.91 cm2 and mean gradient across mitral valve 9 mm Mild tricuspid regurgitation. Mild pulmonic regurgitation. Compared to prior echocardiogram from 2022, patient now has moderate mitral stenosis. Damaso Villavicencio MD (Electronically Signed) Final Date: 22 January 2025 11:06 S
== END 2025-01-12 09:46 | disposition home or self-care (01) ==
LOC: RAD 09:49
PROVIDERS: PCP Internal Medicine; Visit Provider Internal Medicine
DX: R60.0 Localized edema (principal); R93.1 Abnormal findings on diagnostic imaging of heart and coronary circulation; I05.0 Rheumatic mitral stenosis; I05.9 Rheumatic mitral valve disease, unspecified; I35.8 Other nonrheumatic aortic valve disorders; I07.1 Rheumatic tricuspid insufficiency; I37.1 Nonrheumatic pulmonary valve insufficiency
CPT/HCPCS: 93306

== ENCOUNTER → 2025-01-24 09:44 | Outpatient (BNVA) | payer MEDICARE, SELFPAY | PROVIDERS: PCP Internal Medicine; Visit Provider Podiatrist Foot & Ankle Surgery | DX: I73.9 Peripheral vascular disease, unspecified (principal); L60.3 Nail dystrophy; L97.512 Non-pressure chronic ulcer of other part of right foot with fat layer exposed; M20.41 Other hammer toe(s) (acquired), right foot; M20.42 Other hammer toe(s) (acquired), left foot; M79.672 Pain in left foot | CPT/HCPCS: 11042; 11721 ==

== ENCOUNTER → 2025-03-21 13:45 | Outpatient (BNVA) | payer MEDICARE, SELFPAY | PROVIDERS: PCP Internal Medicine; Visit Provider Internal Medicine | DX: R07.9 Chest pain, unspecified (principal); I44.0 Atrioventricular block, first degree; R94.31 Abnormal electrocardiogram [ECG] [EKG]; I10 Essential (primary) hypertension | CPT/HCPCS: 36415; 80048; 83880; 85025; 93005 ==

== ENCOUNTER → 2025-05-02 09:19 | Outpatient (BNVA) | payer MEDICARE, SELFPAY | PROVIDERS: PCP Internal Medicine; Visit Provider Podiatrist Foot & Ankle Surgery | DX: I73.9 Peripheral vascular disease, unspecified (principal); L97.512 Non-pressure chronic ulcer of other part of right foot with fat layer exposed; M20.41 Other hammer toe(s) (acquired), right foot; M20.42 Other hammer toe(s) (acquired), left foot | CPT/HCPCS: 99213 ==

== ENCOUNTER → 2025-06-06 09:36 | Outpatient (BNVA) | payer MEDICARE, SELFPAY | PROVIDERS: PCP Internal Medicine; Visit Provider Podiatrist Foot & Ankle Surgery | DX: I73.9 Peripheral vascular disease, unspecified (principal); L60.3 Nail dystrophy; L84 Corns and callosities; M20.41 Other hammer toe(s) (acquired), right foot; M20.42 Other hammer toe(s) (acquired), left foot | CPT/HCPCS: 11055; 11721 ==

== ENCOUNTER → 2025-07-04 09:55 | Outpatient (BNVA) | payer MEDICARE, SELFPAY | PROVIDERS: PCP Internal Medicine; Visit Provider Podiatrist Foot & Ankle Surgery | DX: I73.9 Peripheral vascular disease, unspecified (principal); L84 Corns and callosities; M20.41 Other hammer toe(s) (acquired), right foot; M20.42 Other hammer toe(s) (acquired), left foot | CPT/HCPCS: 11055 ==

== ENCOUNTER 2025-07-20 08:47 | Outpatient (CLI) | payer MEDICARE, SELFPAY ==
--- NOTE | 2025-07-20 09:15 | USCV_ITS ---
Nguyen Valencia Age: 89 Gender: F : 1935 Exam Date: 07/20/2025 09:52 Ordering Phys: Damaso Villavicencio M.D ([email or web address]) Technologist: GARY Exam Location: [facility] – [place] Indication: mitral valve stenosis BP: 161 / 89 HR: 69 Rhythm: Sinus Technical Quality: Adequate MEASUREMENTS (Male / Female) Normal Values 2D ECHO LV Diastolic Diameter PLAX 3.0 cm 4.2 - 5.9 / 3.9 - 5.3 cm IVS Diastolic Thickness 0.9 cm 0.6 - 1.0 / 0.6 - 0.9 cm IVS Systolic Thickness 1.3 cm LVPW Diastolic Thickness 1.3 cm 0.6 - 1.0 / 0.6 - 0.9 cm LVPW Systolic Thickness 1.5 cm LVOT Diameter 2.0 cm LV Ejection Fraction 2D Teich 68.2 % LV Ejection Fraction MOD 4C 76.4 % LV Ejection Fraction MOD 2C 71.0 % LV Ejection Fraction 2C AL 71.9 % LA Diameter 3.4 cm RA Systolic Volume 4C AL 18.2 ml RA Systolic Volume 4C MOD 18.6 ml LA Sys Volume AL 26.6 cm cubed LA Sys Volume Index AL 14.7 cm cubed/m squared Aorta at Sinotubular Diameter 2.4 cm IVC Diameter 1.5 cm M-MODE LA Ao Ratio MM 1.6 AV Cusp Separation MM 1.4 cm DOPPLER AV Peak Velocity 124.0 cm/s LVOT Peak Velocity 98.0 cm/s AV Area Cont Eq vti 2.6 cm squared AV Area Cont Eq pk 2.6 cm squared MV Peak Velocity 252.0 cm/s MV Area PHT 1.8 cm squared Mitral E to A Ratio 0.6 TV Peak Velocity 164.5 cm/s TR Peak Velocity 203.0 cm/s TR Peak Gradient 16.5 mmHg TR Mean Velocity 147.0 cm/s TR Mean Gradient 9.7 mmHg TR Velocity Time Integral 58.6 cm PV Peak Velocity 101.0 cm/s RV Ejection Time 0.3 s FINDINGS Left Ventricle Normal left ventricular size, systolic function and wall thickness, with no regional wall motion abnormalities. Left ventricular ejection fraction is estimated at 60 %. Grade I/IV diastolic dysfunction (abnormal relaxation filling pattern), normal to mildly elevated filling pressures. Right Ventricle Normal right ventricular size and systolic function. Right Atrium Normal right atrial size. Left Atrium Normal left atrial size. IA Septum Normal appearance of the interatrial septum. Mitral Valve Severely thickened mitral valve. Severe mitral annular calcification. Moderate mitral valve stenosis. Mitral valve mean gradient is 8.8 mmHg. Trace mitral valve regurgitation. Aortic Valve Moderate aortic valve calcification. Mild aortic valve stenosis, mean gradient 3.9 mmHg, DOMINGO 2.6 cm squared. Trace aortic valve regurgitation. Tricuspid Valve Normal tricuspid valve structure. No tricuspid valve stenosis or regurgitation. Normal pulmonary pressure. Pulmonic Valve Normal pulmonic valve structure. No pulmonic valve stenosis or regurgitation. Pericardium No pericardial effusion. Aorta Normal diameter of the aortic root and ascending thoracic aorta. IVC Normal IVC diameter. CONCLUSIONS Normal left ventricular size, systolic function and wall thickness, with no regional wall motion abnormalities. Left ventricular ejection fraction is estimated at 60 %. Grade I/IV diastolic dysfunction (abnormal relaxation filling pattern), normal to mildly elevated filling pressures. Moderate aortic valve calcification. Mild aortic valve stenosis, mean gradient 3.9 mmHg, DOM[place] 2.6 cm squared. Trace aortic valve regurgitation. Severely thickened mitral valve. Severe mitral annular calcification. Moderate mitral valve stenosis. Mitral valve mean gradient is 8.8 mmHg. Trace mitral valve regurgitation. There is no pericardial effusion. Right atrial pressure is around 5 mm of mercury. Kerry Leigh MD (Electronically Signed) Final Date: 29 July 2025 18:05 S
== END 2025-07-20 08:48 | disposition home or self-care (01) ==
LOC: RAD 08:49
PROVIDERS: PCP Internal Medicine; Visit Provider Internal Medicine
DX: I05.0 Rheumatic mitral stenosis (principal); I51.89 Other ill-defined heart diseases; I35.0 Nonrheumatic aortic (valve) stenosis; I35.8 Other nonrheumatic aortic valve disorders
CPT/HCPCS: 93306

== ENCOUNTER → 2025-08-01 09:35 | Outpatient (BNVA) | payer MEDICARE, SELFPAY | PROVIDERS: PCP Internal Medicine; Visit Provider Podiatrist Foot & Ankle Surgery | DX: I73.9 Peripheral vascular disease, unspecified (principal); L84 Corns and callosities; M20.41 Other hammer toe(s) (acquired), right foot; M20.42 Other hammer toe(s) (acquired), left foot | CPT/HCPCS: 11055 ==

== ENCOUNTER → 2025-08-22 09:11 | Outpatient (BNVA) | payer MEDICARE, SELFPAY | PROVIDERS: PCP Internal Medicine; Visit Provider Podiatrist Foot & Ankle Surgery | DX: I73.9 Peripheral vascular disease, unspecified (principal); L60.3 Nail dystrophy; L84 Corns and callosities; M20.41 Other hammer toe(s) (acquired), right foot; M20.42 Other hammer toe(s) (acquired), left foot | CPT/HCPCS: 11055; 11721 ==

== ENCOUNTER → 2025-09-12 09:54 | Outpatient (BNVA) | payer MEDICARE, SELFPAY | PROVIDERS: PCP Internal Medicine; Visit Provider Podiatrist Foot & Ankle Surgery | DX: M20.41 Other hammer toe(s) (acquired), right foot (principal); M20.42 Other hammer toe(s) (acquired), left foot; I73.9 Peripheral vascular disease, unspecified | CPT/HCPCS: 99213 ==

== ENCOUNTER → 2025-09-19 14:00 | Outpatient (BNVA) | payer MEDICARE, SELFPAY | PROVIDERS: PCP Internal Medicine; Visit Provider Internal Medicine | DX: I25.118 Atherosclerotic heart disease of native coronary artery with other forms of angina pectoris (principal); I10 Essential (primary) hypertension; I34.2 Nonrheumatic mitral (valve) stenosis | CPT/HCPCS: 99214 ==